=== PATIENT | female | born 1945 | race Caucasian/White ===

== ENCOUNTER 2025-09-23 12:11 | Outpatient (AMB) | payer MEDICARE, SELFPAY ==
--- OUTSIDE RECORDS SUMMARY | 2025-08-31 10:46 | XMS_ITS ---
Author Organization [facility] Address [address] [place], [place] [id number] Care Team Providers Care Machine Gun Mechanic Name Role Phone CAMPBELLKIARRABERTHA Primary Care Provider REASON FOR VISIT Appointment For , 09/03/25 SOCIAL HISTORY Sex Assigned At : Social History Observation Description Sex Assigned At Female Encounters Encounter Location Date Provider Diagnosis [address] [address] 08/31/2025 BERTHA HIGHTOWER PLAN OF TREATMENT Next Appt Details Provider Name:BERTHA GARCIA, 10/12/2025 01:00:00 PM, [address] [place] [address], [phone], Provider Name:BERTHA GARCIA, 11/25/2025 01:20:00 PM, [address] [place] [address], [phone], Provider Name:NURSING DEWEY Pineda, 11/25/2025 02:30:00 PM, [address] [place] [address], [phone],
--- OUTSIDE RECORDS SUMMARY | 2025-09-01 06:22 | XMS_ITS ---
Author Organization [facility] Address [address] [place], [place] [id number] Care Team Providers Care Computer Programming Manager Name Role Phone CAMPBELLKIARRABERTHA Primary Care Provider REASON FOR VISIT Appointment For 09/03/25 SOCIAL HISTORY Sex Assigned At : Social History Observation Description Sex Assigned At Female Encounters Encounter Location Date Provider Diagnosis [address] [address] 09/01/2025 BERTHA HIGHTOWER PLAN OF TREATMENT Next Appt Details Provider Name:BERTHA GARCIA, 10/12/2025 01:00:00 PM, [address] [place] [address], [phone], Provider Name:BERTHA GARCIA, 11/25/2025 01:20:00 PM, [address] [place] [address], [phone], Provider Name:NURSING DEWEY Pineda, 11/25/2025 02:30:00 PM, [address] [place] [address], [phone],
--- OUTSIDE RECORDS SUMMARY | 2025-09-01 09:13 | XMS_ITS ---
Author Organization [facility] Address [address] [place], [place] [id number] Care Team Providers Care State Federal Relations Deputy Director Name Role Phone CAMPBELL BERTHA Primary Care Provider REASON FOR VISIT Appointment w/Dr. Krueger MEDICATIONS Medication SIG (Take, Route, Frequency, Duration) Notes Start Date End Date Status Zolpidem Tartrate 5 MG 1 tablet at bedti me as needed Orally Once a day 07/16/2025 Active metFORMIN HCl ER 500 MG TAKE 1 TABLET BY MOUTH EVERY DAY for 90 Active Medical Compression Stockings - as directed Knee high open toed 20mmHG Dx I89.0, I87.2, R60.0 04/30/2025 Active Rosuvastatin Calcium 5 MG 1 tablet orally Once a day Active Gabapentin 300 MG TAKE 2 CAPSULES BY MOUTH AT BEDTIME and 1 qam Active Vitamin D 50 MCG (2000 UT) 1 tablet Orally Once a day Active Turmeric 500 MG as directed Orally 2200mg Active OneTouch Ultra - USE TO TEST 1-2 TIMES DAILY Active Stool Softener 100 MG 1 tablet as needed Orally Once a day for 30 day(s) Active MetroCream 0.75 % 1 herrera applied topically twice daily to facial rosacea as needed Active CoQ-10 100 MG as directed Orally Active Vitamin B Complex - as directed Orally Active Acetaminophen 8 Hour 650 MG 2 tablets as needed Orally every 8 hrs Active Escitalopram Oxalate 10 MG 1 tablet Orally Once a day for 30 day(s) Active Ibuprofen 600 MG 1 tablet with food or milk as needed Orally Three times a day Active Mirtazapine 15 MG 1/2 tablet at bedtime Orally Once a day Active MiraLax 17 GM/SCOOP as directed Orally daily Active SOCIAL HISTORY Sex Assigned At : Social History Observation Description Sex Assigned At Female Encounters Encounter Location Date Provider Diagnosis [facility] [address] [address] 09/01/2025 BERTHA SRIVASTAVAFREIDA PLAN OF TREATMENT Next Appt Details Provider Name:BERTHA Cheatham EIDLSON GARCIA, 10/12/2025 01:00:00 PM, [address] [place] [address], [phone], Provider Name:BERTHA SRIVASTAVAGalindo GARCIA, 11/25/2025 01:20:00 PM, [address] [place] [address], [phone], Provider Name:IGNACIO Pineda, 11/25/2025 02:30:00 PM, [address] [place] [address], [phone],
--- OUTSIDE RECORDS SUMMARY | 2025-09-03 04:00 | XMS_ITS ---
Author Organization [facility] Address [address] [place], [place] [phone] Care Team Providers Care Stud Dairy Cattle Farmer Name Role Phone BERTHA HIGHTOWER Primary Care Provider [phone] REASON FOR VISIT ER f/up; suicidal ideation MEDICATIONS Medication SIG (Take, Route, Frequency, Duration) Notes Start Date End Date Status Zolpidem Tartrate 5 MG 1 tablet at bedti me as needed Orally Once a day 07/16/2025 Active metFORMIN HCl ER 500 MG TAKE 1 TABLET BY MOUTH EVERY DAY for 90 Active MiraLax 17 GM/SCOOP as directed Orally daily Active Rosuvastatin Calcium 5 MG 1 tablet orally Once a day Active Gabapentin 300 MG TAKE 2 CAPSULES BY MOUTH AT BEDTIME and 1 qam Active OneTouch Ultra - USE TO TEST 1-2 TIMES DAILY Active Vitamin D 50 MCG (1999 UT) 1 tablet Orally Once a day Active Turmeric 500 MG as directed Orally 2200mg Active MetroCream 0.75 % 1 herrera applied topically twice daily to facial rosacea as needed Active Medical Compression Stockings - as directed Knee high open toed 20mmHG Dx I89.0, I87.2, R60.0 04/30/2025 Active CoQ-10 100 MG as directed Orally Active Vitamin B Complex - as directed Orally Active Acetaminophen 8 Hour 650 MG 2 tablets as needed Orally every 8 hrs Active Stool Softener 100 MG 1 tablet as needed Orally Once a day for 30 day(s) Active Ibuprofen 600 MG 1 tablet with food or milk as needed Orally Three times a day Active Escitalopram Oxalate 10 MG 1 tablet Orally Once a day for 30 day(s) Active SOCIAL HISTORY Tobacco Use: Social History Observation Description Date Details (start date - stop date) Never Smoker NA - NA Sex Assigned At : Social History Observation Description Sex Assigned At Female Smoking Question Answer Notes Are you a: never smoker Section Notes: quit age 24; h/o 1/2 ppd x 2 years. Encounters Encounter Location Date Provider Diagnosis [address] [address] 09/03/2025 BERTHA HIGHTOWER PLAN OF TREATMENT Next Appt Details Provider Name:BERTHA GARCIA, 10/12/2025 01:00:00 PM, [address] [place] [address], [phone], Provider Name:BERTHA GARCIA, 11/25/2025 01:20:00 PM, [address] [place] [address], [phone], Provider Name:IGNACIO Pineda, 11/25/2025 02:30:00 PM, [address] [place] [address], [phone],
--- OUTSIDE RECORDS SUMMARY | 2025-09-07 05:07 | XMS_ITS ---
Author Organization [facility] Address [address] [place], [place] [id number] Care Team Providers Care Lead Care Manager Name Role Phone CAMPBELL BERTHA Primary Care Provider REASON FOR VISIT Appointment At Your Office SOCIAL HISTORY Sex Assigned At : Social History Observation Description Sex Assigned At Female Encounters Encounter Location Date Provider Diagnosis [address] [address] 09/07/2025 BERTHA HIGHTOWER PLAN OF TREATMENT Next Appt Details Provider Name:BERTHA GARCIA, 10/12/2025 01:00:00 PM, [address] [place] [address], [phone], Provider Name:BERTHA GARCIA, 11/25/2025 01:20:00 PM, [address] [place] [address], [phone], Provider Name:NURSING DEWEY Pineda, 11/25/2025 02:30:00 PM, [address] [place] [address], [phone],
--- OUTSIDE RECORDS SUMMARY | 2025-09-08 07:34 | XMS_ITS ---
Author Organization [facility] Address [address] [place], [place] [id number] Care Team Providers Care Mutual Funds Agent Name Role Phone CAMPBELLKIARRABERTHA Primary Care Provider REASON FOR VISIT Reschedule Appointment Request SOCIAL HISTORY Sex Assigned At : Social History Observation Description Sex Assigned At Female Encounters Encounter Location Date Provider Diagnosis [address] [address] 09/08/2025 BERTHA HIGHTOWER PLAN OF TREATMENT Next Appt Details Provider Name:BERTHA GARCIA, 10/12/2025 01:00:00 PM, [address] [place] [address], [phone], Provider Name:BERTHA GARCIA, 11/25/2025 01:20:00 PM, [address] [place] [address], [phone], Provider Name:NURSING DEWEY Pineda, 11/25/2025 02:30:00 PM, [address] [place] [address], [phone],
--- OUTSIDE RECORDS SUMMARY | 2025-09-08 07:34 | XMS_ITS ---
Author Organization [facility] Address [address] [place], [place] [id number] Care Team Providers Care Upper Marker Name Role Phone BERTHA HIGHTOWER Primary Care Provider [phone] MANSOOR DAN [phone] REASON FOR VISIT Cancel Appointment Request SOCIAL HISTORY Sex Assigned At : Social History Observation Description Sex Assigned At Female Encounters Encounter Location Date Provider Diagnosis [address] [address] 09/08/2025 MANSOOR BAXTER PLAN OF TREATMENT Next Appt Details Provider Name:BERTHAJUAN DANIEL GARCIA, 10/12/2025 01:00:00 PM, [address] [place] [address], [phone], Provider Name:BERTHA GARCIA, 11/25/2025 01:20:00 PM, [address] [place] [address], [phone], Provider Name:NURSING DEWEY Pineda, 11/25/2025 02:30:00 PM, [address] [place] [address], [phone],
--- OUTSIDE RECORDS SUMMARY | 2025-09-08 09:00 | XMS_ITS ---
Author Organization [facility] Address [address] [place], [place] [id number] Care Team Providers Care Motel Front Desk Clerk Name Role Phone BERTHA HIGHTOWER Primary Care Provider [phone] MANSOOR DAN [phone] REASON FOR VISIT 36/37/ Bilateral upper arm pain SOCIAL HISTORY Sex Assigned At : Social History Observation Description Sex Assigned At Female Encounters Encounter Location Date Provider Diagnosis [address] [address] 09/08/2025 MANSOOR BAXTER PLAN OF TREATMENT Next Appt Details Provider Name:BERTHAJUAN DANIEL GARCIA, 10/12/2025 01:00:00 PM, [address] [place] [address], [phone], Provider Name:BERTHA GARCIA, 11/25/2025 01:20:00 PM, [address] [place] [address], [phone], Provider Name:NURSING DEWEY Pineda, 11/25/2025 02:30:00 PM, [address] [place] [address], [phone],
--- OUTSIDE RECORDS SUMMARY | 2025-09-10 05:40 | XMS_ITS ---
Author Organization [facility] Address [address] [place], [place] [id number] Care Team Providers Care Dumper Name Role Phone BERTHA HIGHTOWER Primary Care Provider MANSOOR BAXTER [phone] ALLERGIES Allergen (clinical drug ingredient) Drug/Non Drug Allergy documented on EMR Reaction Allergy Type Onset Date Status KEFLEX (uncoded) sweating & disorientation, palpatations Allergy Active doxycycline Doxycycline rash Drug Allergy Act gael predniSONE hives Drug Allergy Active simvastatin Simvastatin anterior neck spasms Drug Allergy Active azithromycin Zithromax Z-Herman hives/blisters o n arms Drug Allergy Active atorvastatin Atorvastatin muscle pain Drug Allergy Active Substance with 6-rpvdlju-1-methyl glutaryl-coenzyme A reductase inhibitor mechanism of action (substance) Statins muscle pain Drug Allergy Active REASON FOR VISIT upper bilateral arm pain, [facility] Dr. Rema Barillas, DR. Maria, [facility], Discuss Mirtazapine MEDICATIONS Medication SIG (Take, Route, Frequency, Duration) Notes Start Date End Date Status metFORMIN HCl ER 500 MG TAKE 1 TABLET BY MOUTH EVERY DAY for 90 Active Gabapentin 300 MG TAKE 2 CAPSULES BY MOUTH AT BEDTIME and 1 qam Active Rosuvastatin Calcium 5 MG 1 tablet orally Once a day Active Zolpidem Tartrate 5 MG 1 tablet at bedti me as needed Orally Once a day 07/16/2025 Active OneTouch Ultra - USE TO TEST 1-2 TIMES DAILY Active Turmeric 500 MG as directed Orally 2200mg Active Vitamin D 50 MCG (1999) 1 tablet Orally Once a day Active Medical Compression Stockings - as directed Knee high open toed 20mmHG Dx I89.0, I87.2, R60.0 04/30/2025 Active MetroCream 0.75 % 1 herrera applied topically twice daily to facial rosacea as needed Active Acetaminophen 8 Hour 650 MG 2 tablets as needed Orally every 8 hrs Active Stool Softener 100 MG 1 tablet as needed Orally Once a day for 30 day(s) Active Ibuprofen 600 MG 1 tablet with food or milk as needed Orally Three times a day Active Vitamin B Complex - as directed Orally Active CoQ-10 100 MG as directed Orally Active LORazepam 0.5 MG 1 tab and may repeat in 2 hrs if needed Orally for 1 day 09/10/2025 Active MiraLax 17 GM/SCOOP as directed Orally daily Active Escitalopram Oxalate 10 MG 1 tablet Orally Once a day for 30 day(s) Active SOCIAL HISTORY Sex Assigned At : Social History Observation Description Sex Assigned At Female Section Notes: quit age 24; h/o 1/2 ppd x 2 years. PROBLEMS Problem Type ICD Code Onset Dates Problem Status W/U Status Risk SNOMED Code Notes Problem Claustrophobia (F40.240) Active confirmed VITAL SIGNS Blood pressure systolic 128 mm Hg 09/10/20 25 Blood pressure diastolic 72 mm Hg 025 Height 67 in 09/10/2025 Weight 192.8 lbs 09/10/2025 BMI 30.19 kg/m2 09/10/2025 Encounters Encounter Location Date Provider Diagnosis [facility] [address] [place] [address] 09/10/2025 MANSOOR BAXTER Pain in left arm M79.602 ; Pain in right arm M79.601 ; Bilateral hand numbness R20.0 ; Claustrophobia F40.240 and Chronic constipation K59.09 ASSESSMENTS Encounter Date Diagnosis Assessment Notes Treatment Notes Treatment Clinical Notes Section Notes 09/10/2025 Pain in left arm (ICD-10 - M79.602) 09/10/2025 Pain in right arm (ICD-10 - M79.601) 09/10/2025 Bilateral hand numbness (ICD-10 - R20.0) 09/10/2025 Claustrophobia (ICD-10 - F40.240) 09/10/2025 Chronic constipation (ICD-10 - K59.09) uses senns s 1 twice a day a nd miralax, metamucil daily as needed and the mag citrate if needed ; use GI refefrral with 2017 colonoscopy attached to make appt with GI 09/10/2025 Other she is using the [facility] referral copy to make appt PLAN OF TREATMENT Medication Medication Name Sig Start Date Stop Date Notes LORazepam 0.5 MG 1 tab and may repea t in 2 hrs if needed Orally for 1 day 09/10/2025 Treatment Notes Assessment Notes Chronic constipation uses senns s 1 twic e a day a nd miralax, metamucil daily as needed and the mag citrate if needed ; use GI refefrral with 2017 colonoscopy attached to make appt with GI Other she is using the [facility] referral copy to make appt Pending Test Test Name Order Date MRI Cervical Spine without contrast 08/20 Next Appt Details Follow Up: pcp late Nov, ear ly Decemb, Reason: Provider Name:BERTHA Cheatham ATIFGalindo RADHA, 10/12/2025 01:00:00 PM, [address] [place] [address], [phone], Provider Name:BERTHA Cheatham EDILSON GARCIA, 11/25/2025 01:20:00 PM, [address] [place] [address], [phone], Provider Name:IGNACIO Pineda, 11/25/2025 02:30:00 PM, [address] [place] [address], [phone], History and Physical Notes * HPI (History of Present Illness) Category Sub-Category Detail Notes Category Not es General started pain ar ms early August. rt arm worse than left and numbness 45th fingers rt hands. No neck pains No other symptoms Chronic constipation Miralax and senna not helping mag citrate. States constipation since summer. States colonoscopy 2017 and told redo 5 yrs but due knee surgery was cancelled. States has chronic claustrophobia and will need ativan for MRI. States was supposted to do EMG in spring but did not do. States it can be painful . Numbness fingers both hands Physical Examination Category Sub-Category Detail Notes Section Note s NECK Neck: tightness in par avert muscles and also sonme tenderness posterio neck CHEST Breath sounds: clear to auscultation HEART Rhythm: regular Heart sounds: Normal S1 & S2, no S 3/S4 NEUROLOGICAL Sensory: normal Motor: 5/5 strength proxima lly and distally in all 4 extremities; tile and marble setter strong Gait: walks slow with cane Mental status: Alert and oriented t o person, place, time Cerebellar: normal Speech normal MUSCULOSKELETAL Shoulders: pain in shoulder when wilkes sing up GENERAL General Appearance: well nourished, no ap parent distress, O x 3 NAD PSYCHOLOGY Grooming: appropriate Eye contact: normal Mood: pleasant Affect some anxiety
--- OUTSIDE RECORDS SUMMARY | 2025-09-15 10:40 | XMS_ITS ---
Author Organization [facility] Address [address] [place], [place] [id number] Care Team Providers Care Roof Bolter Operator Name Role Phone BERTHA HIGHTOWER Primary Care Provider [phone] CHAI LANDEROS [phone] REASON FOR VISIT 36/37/bilateral upper arm pain SOCIAL HISTORY Sex Assigned At : Social History Observation Description Sex Assigned At Female Encounters Encounter Location Date Provider Diagnosis [address] [address] 09/15/2025 CHAI BUTCHER PLAN OF TREATMENT Next Appt Details Provider Name:BERTHA S EDILSON GARCIA, 10/12/2025 01:00:00 PM, [address] [place] [address], [phone], Provider Name:BERTHA GARCIA, 11/25/2025 01:20:00 PM, [address] [place] [address], [phone], Provider Name:NURSING DEWEY Pineda, 11/25/2025 02:30:00 PM, [address] [place] [address], [phone],
--- NOTE | 2025-09-23 12:23 | A.OFFVIS_ITS ---
Intake Visit Reasons: Chronic pain in both arms Medication List - Last Reconciled 09/23/25 by Marquise Dang MD escitalopram oxalate (Lexapro) 10 mg PO DAILY gabapentin 300 mg PO TID metformin 500 mg PO DAILY mirtazapine 15 mg PO BEDTIME rosuvastatin 5 mg PO DAILY HPI Comments Details: This is a 79-year-old right-handed woman with a history of anxiety disorder, type 2 diabetes mellitus and osteoarthritis who comes in with multiple complaints. She has had neck pain starting in March of 2025 and pain radiating into both arms in the shoulders and forearms initially starting on the right and now more prominent on the left side with some sharp stabbing pains over the deltoids and aching in the forearm. She also complains of lower back pain and pain in both buttocks. Three days ago she had an MRI of the cervical spine and is scheduled for a lumbar spine MRI tomorrow. Neither of those are available for review at this time. It was also suggested that she have nerve conduction EMG study which she canceled because she was afraid of the pain. She complains of some numbness tenderness in the right foot distal to the mid tarsal level and says that she has a neuropathy. She also has pain in her knees and has had right total knee replacement. She sometimes loses balance and therefore uses a cane for security. She complains of tinnitus in the left ear. She has lost 100 4 lb over the last year with diet and eating less and has dropped her weight from 298-194. She is 70 inches tall Review of Systems Const Reports weight loss ENT Reports neck pain and Reports tinnitus GI Reports constipation Details: Urinary frequency Musc Reports back pain, Reports arthralgias, Reports limited range of motion, Reports neck pain, Reports numbness and Reports radiating pain into limb Neuro Reports numbness Psych Reports depression Physical Exam Neuro Other: ?Mini Mental Status Exam Level of Consciousness:?Alert.? Orientation:?Knows correct year, month, date, day and season.?Knows correct city, county and state. Knows correct location and floor.? Registration:?Able to register 3 objects.? Attention:?Serial 7's performed accurately.? Recall:?Able to recall 3 out of 3 objects.? Language:?Normal spontaneous speech, fluency, repetition, naming, comprehension, reading, and writing.? Total Score:?30/30.? Neurological Abnormal neurological findings:??Absent deep tendon reflexes in the lower extremities. Mild blunting of pinprick sensation in the right foot distal to the mid tarsal level.? Mental Status:?Alert and oriented X 3.?Normal attention, orientation, memory, and affect.? Cranial Nerves:?Pupils are equal, round and reactive to light. Fundoscopy shows normal disc bilaterally. External occular muscles are intact. Visual gonzalez are full, no ptosis. Face is symmetrical, no facial weakness or droop. Facial sensations are normal. Tongue protrudes in midline. Palate elevates symmetrically. Shoulder shrugging is normal.? Motor Examination:?Normal muscle tone, bulk and strength.?No atrophy or fasciculations.?No drift of the extended upper extremities.?Deep tendon reflexes are 2+ absent in LE.?Plantars are flexor.? Motor Strength:? Proximal Muscles (out of 5):?5 Distal Muscles (out of 5):?5 Neck Flexors (out of 5):?5 Neck Extensors (out of 5):?5 Deltoid (out of 5):?5 Biceps (out of 5):?5 Triceps (out of 5):?5 Serratus Anterior (out of 5):?5 Wrist Extensors (out of 5):?5 APB (out of 5):?5 Finger Spread (out of 5):?5 Ileopsoas (out of 5):?5 Quadriceps (out of 5):?5 Hamstrings (out of 5):?5 Tibialis Anterior (out of 5):?5 Peronei (out of 5):?5 EDB (out of 5):?5 Gastrocnemius (out of 5):?5 Straight Leg Raising:?90 degrees.? Sensory Exam:?as above, otherwise Normal light touch, temperature, pinprick, vibration and joint-position sensations.?Rhomberg sign is absent.? Coordination:?No ataxia,?no titubation,?fdtscn-hv-pxkz, mbch-hasy-upoy test, and rapid alternating movements were normal.? Gait Exam:?Within normal limits.? Cerebellar Signs:?Jlzrlm-ws-wtfo and iltt-ay-qtlq is normal.?No dysdiadochokinesia.? Extrapyramidal System:?No tremor or?rigidity, normal facial expressions.?No bradykinesia. No bradyphrenia. Normal arm swing and posture. No propulsion or retropulsion.? Speech:?Normal,?no dysphasia or dysarthria.? General Examination GENERAL APPEARANCE:??normal,?in no acute distress?,?normal,?in no acute distress.? HEAD:??normocephalic,?atraumatic.? EYES:??sclera non-icteric,?conjunctiva clear.? EARS:??auditory canal clear,?tympanic membrane intact, clear.? NOSE:??no lesions.? ORAL CAVITY:??gums normal,?mucosa moist,?no lesions.? THROAT:??clear.? NECK/THYROID:??no cervical lymphadenopathy,?thyroid normal,?neck supple, full range of motion,?no carotid bruit.? SKIN:??no rashes,?no significant birthmarks.? HEART:??S1, S2 normal,?no murmurs?,?S1, S2 normal,?no murmurs.? LUNGS:??clear anteriorly and posteriorly?,?clear anteriorly and posteriorly.? CHEST:??no gross rib deformity,?clear to auscultation.? BACK:??normal exam of spine.? MUSCULOSKELETAL:??normal.? EXTREMITIES:??no edema?,?no edema.? PERIPHERAL PULSES:??normal.? PSYCH:??alert, oriented,?cognitive function intact,?cooperative with exam?, ?alert, oriented,?cognitive function intact,?cooperative with exam.? Assessment & Plan Assessment & Plan (1) Cervical spondylosis with radiculopathy: Code(s): M47.22 - Other spondylosis with radiculopathy, cervical region Category: Medical (2) Lumbar disc disease with radiculopathy: Code(s): M51.16 - Intervertebral disc disorders with radiculopathy, lumbar region Category: Medical (3) Peripheral neuropathy: Code(s): G62.9 - Polyneuropathy, unspecified Category: Medical Plan MRI C spine done last week: Patient to bring results, LS spine MRI being done tomorrow. Patient wants to hold off NCV/ EMG for now. Diclofenac sod. 75mg bid prn Medications: New diclofenac sodium 75 mg PO BID 60 tabs 1RF Coding Level of Care Code New Pt Level 5 (98309) Diagnoses Cervical spondylosis with radiculopathy M47.22 Lumbar disc disease with radiculopathy M51.16 Peripheral neuropathy G62.9
--- OUTSIDE RECORDS SUMMARY | 2025-09-23 14:50 | XMS_ITS | Encounter Summary ---
Author Organization [facility] Address [address] [place] [address] Care Team Providers Care Bender Machine Operator Name Role Phone Lainey Krueger MD Primary Care Provider [phone] Encounter Details Date Type Department Care Team (Late Contact Info) Description 03/19/2025 Lab Requisition [facility] - Main Lab [address] [facility] [place] [phone] Nicolasa Joshi NP [address] [address] Frequency of micturition Social History Tobacco Use Types Packs/Day Years Used Date Smoking Tobacco: Former Cigarettes Alcohol Use Standard Drinks/Week Comments Yes 0 (1 standard drink = 0.6 oz pur e alcohol) rarely Comments Unknown Sex and Gender Information Value Date Recorded Sex Assigned at Female 10/10/2024 6:02 AM EST Legal Sex Female 7:17 AM EST Gender Identity Female 10/10/2024 6:02 AM EST Sexual Orientation Straight 10/10/2024 6: 02 AM EST documented as of this encounter Plan of Treatment Upcoming Encounters Date Type Department Care Team (Late Contact Info) Description 09/24/2025 12:15 PM EST Appointment [facility] MRI [address] [place] [phone] 10/28/2025 11:30 AM EST Office Visit [facility] Hematology Oncology [address] [place] [phone] Alannah Barillas, DO [address] [place] [address] documented as of this encounter Procedures Procedure Name Priority Date/Time Associated Diagnosis Comments BACTERIAL IDENTIFICATION AND SUSCEPTIBILITY, AEROBIC Routine 03/18/2025 12:00 AM EDT Frequency of micturition documented in this encounter Results * (ABNORMAL) Bacterial identification and susceptibility, aerobic (03/18/2025 12:00 AM EDT) Pathologist [facility] Culture, Bacterial ID and Sensitivity Escherichia coli(A) CLAUDIA 03/20/2025 8:33 AM EDT [facility] Other Urine specimen from urethra / Unknown 03/18/2025 03/19/2025 10:17 AM EDT Narrative Organism Antibiotic Method Susceptibility Escherichia coli Amoxicillin/Clavulanate CLAUDIA 4 ug/ml: Susceptible Escherichia coli Ampicillin/Sulbactam CLAUDIA 4 ug/ml: Susceptible Escherichia coli Piperacillin/Tazobactam CLAUDIA <=4 ug/ml: Susceptible Escherichia coli Cefazolin (Urine) CLAUDIA <=1 ug/ml: Susceptible Escherichia coli Cefoxitin CLAUDIA <=4 ug/ml: Susceptible Escherichia coli Ceftazidime CLAUDIA <=0.5 ug/ml: Susceptible Escherichia coli Ceftriaxone CLAUDIA <=0.25 ug/ml: Susceptible Escherichia coli Cefepime CLAUDIA <=0.12 ug/ml: Susceptible Escherichia coli Meropenem CLAUDIA <=0.25 ug/ml: Susceptible Escherichia coli Amikacin CLAUDIA 4 ug/ml: Susceptible Escherichia coli Gentamicin CLAUDIA <=1 ug/ml: Susceptible Escherichia coli Ciprofloxacin CLAUDIA <=0.06 ug/ml: Susceptible Escherichia coli Levofloxacin CLAUDIA <=0.12 ug/ml: Susceptible Escherichia coli Nitrofurantoin CLAUDIA <=16 ug/ml: Susceptible Escherichia coli Trimethoprim/Sulfamethoxazole CLAUIDA >=320 ug/ml: Resistant us Nicolasa Joshi NP LAB MICROBIOLOGY - GENERA L ORDERABLES Final Result [facility] [address] [place], [place] [address] [phone] documented in this encounter Visit Diagnoses Diagnosis Frequency of micturition Urinary frequency documented in this encounter Care Teams Bender Machine Operator Relationship Specialty Start Date End Date Lainey Krueger MD [address] [place] [id number] PCP - General Internal Medicine 04/29/25 documented as of this encounter
--- OUTSIDE RECORDS SUMMARY | 2025-09-23 14:50 | XMS_ITS | Encounter Summary ---
Author Organization [facility] Address [address] [place] [address] Care Team Providers Care Content Strategist Name Role Phone Lainey Krueger MD Primary Care Provider [phone] Encounter Details Date Type Department Care Team (Late Contact Info) Description 02/08/2025 Lab Requisition [facility] - Main Lab [address] [facility] [place] [phone] Aashish Teran MD [address] [place] [address] Type 2 diabetes mellitus without complications (CMS/HCC V24, CMS/HCC V28); Cellulitis, unspecified Social History Tobacco Use Types Packs/Day Years [...] Info) Description 09/24/2025 12:15 PM EST Appointment [facility] MRI [address] [place] [phone] 10/28/2025 11:30 AM EST Office Visit [facility] Hematology Oncology [address] [place] [phone] Alannah Barillas, DO [address] [place] [address] documented as of this encounter Visit Diagnoses Diagnosis Type 2 diabetes mellitus without complications ([facility] V24, [facility] V28) Cellulitis, unspecified documented in this encounter Care Teams Content Strategist Relationship Specialty Start Date End Date Lainey Krueger MD [address] [place] [phone] PCP - General Internal Medicine 04/29/25 documented as of this encounter
--- OUTSIDE RECORDS SUMMARY | 2025-09-23 14:50 | XMS_ITS | Clinical Summary ---
Author Organization [facility] Address [address] [place] [phone] Phone Care Team Providers Care Science Faculty Member Name Role Phone Lainey Krueger MD Primary Care Provider [phone] Allergies Active Allergy Reactions Criticality Noted Date Comments Cephalexin 06/04/2025 Medications diclofenac (VOLTAREN) 75 mg EC tablet Take 1 tablet (75 mg total) by mouth. 1 Active cycloSPORINE (Restasis) 0.05 % ophthalmic emulsion 1 drop. 2 Active gabapentin (NEURONTIN) 300 mg capsule Take 1 capsule (300 mg total) by mouth 2 (two) times a day. 2 Active metFORMIN (GLUCOPHAGE) 500 mg tablet Take 1 tablet (500 mg total) by mouth 1 (one) time each day with breakfast. Active rosuvastatin (CRESTOR) 5 mg tablet Take 1 tablet (5 mg total) by mouth 1 (one) time each day. Active cholecalciferol (VITAMIN D-3) 25 mcg (1,000 unit) tablet Take 1 tablet (1,000 Units total) by mouth. Active albuterol HFA (PROAIR HFA ; PROVENTIL HFA ; VENTOLIN HFA) 90 mcg/actuation inhaler Inhale 2 puffs by mouth every 4 (four) hours if needed. Active budesonide-formo teroL (SYMBICORT) 160-4.5 mcg/actuation inhaler Inhale 2 puffs by mouth. Active polyethylene glycol (PEG) 17 gram/dose oral powder 17 g 1 (one) time each day. Active loratadine (CLARITIN REDITABS) 10 mg dispersible tablet Dissolve 1 tablet (10 mg total) on top of the tongue 1 (one) time each day. Active fluticasone propionate (FLONASE) 50 mcg/actuation nasal spray Administer 1 spray into each nostril 1 (one) time each day. Shake gently. Before first use, prime pump. After use, clean tip and replace cap. Active phenazopyridine (PYRIDIUM) 200 mg tablet Take 1 tablet (200 mg total) by mouth every 8 (eight) hours if needed (urinary discomfort). 21 tablet Active Active Problems Problem Noted Date Diagnosed Date Asthma 10/09/2024 Diabetes mellitus, type 2 ([facility] V24, [facility] V28) 10/09/2024 Cancer ([facility] V24, [facility] V28) 10/09/2024 Encounters Date Type Department Care Team Description 08/04/2025 8:19 PM EDT - 08/04/2025 10:[address] [facility] Emergency [address] [place] [address] Aida Mcarthur MD Gasping for breath (Primary Dx) Discharge Disposition: Home or Self Care 08/03/[address] [facility] Hematology Oncology [address] [place] [address] [place], [place] 07/22/2025 9:39 AM EDT - 07/22/2025 11:59 PM EDT Hospital Encounter [facility] CT Scan [address] [place] [address] DM (diabetes mellitus) ([facility] V24, [facility] V28); Asthma; Personal history of malignant neoplasm of bladder; Personal history of malignant neoplasm of ureter Discharge Disposition: Home or Self Care from Last 3 Months Surgical History Surgery Date Site/Laterality Comments BLADDER SURGERY CYSTOSCOPY VEIN SURGERY HYSTERECTOMY FEMUR FRACTURE SURGERY MENISCECTOMY Bilateral Medical History Medical History Date Comments Diabetes mellitus ([facility] V24, [facility] V28) Fractures Rib fracture Cancer ([facility] V24, [facility] V28) Asthma Reactive airway disease Neuropathy Cellulitis Bladder cancer ([facility] V24, [facility] V28) Neuropathy Social History Tobacco Use Types Packs/Day Years Used Date Smoking Tobacco: Former Cigarettes Tobacco Cessation:Counseling Given: Not Answered Alcohol Use Standard Drinks/Week Comments Yes 0 (1 standard drink = 0.6 oz pur e alcohol) rarely Comments No Sex and Gender Information Value Date Recorded Sex Assigned at Female 10/10/2024 6:02 AM EST Legal Sex Female 7:17 AM EST Gender Identity Female 10/10/2024 6:02 AM EST Sexual Orientation Straight 10/10/2024 6: 02 AM EST Obstetrics History Para Term AB IAB SAB Ectopic Multiple Livin g Live Births 2 Last Filed Vital Signs Vital Sign Reading Time Taken Comments Blood Pressure 113/66 08/04/2025 7:11 PM EDT Pulse 63 08/04/2025 7:11 PM EDT Temperature 36.7 C (98.1 F) 08/04/2025 7:11 PM EDT Respiratory Rate 22 08/04/2025 7:11 PM EDT Oxygen Saturation 100% 08/04/2025 7:11 PM EDT Inhaled Oxygen Concentration - - Weight 99.8 kg (220 lb) 06/04/2025 11:35 AM EDT Height 177.8 cm (5' 10 ) 06/04/2025 11:35 AM EDT Body Mass Index 31.57 06/04/2025 11:35 AM EDT Plan of Treatment Upcoming Encounters Date Type Department Care Team (Late st Contact Info) Description 09/24/2025 12:[address] [facility] MRI [address] [place] [address] 10/28/2025 11:30 AM EST Office Visit [facility] Hematology Oncology [address] [place] [address] Alannah Barillas, [address] [place] [address] Health Maintenance Due Date Last Done Comments Diabetes: Annual Foot Exam 1957 Diabetes: Annual Retina Eye Exam 1955 DTaP,Tdap,and Td Vaccines (1 - Tdap) 1966 Hepatitis A Vaccines (1 of 2 - Risk 2-dose series) 1966 Zoster Vaccines (1 of 2) 1997 Hepatitis B Vaccines (1 of 3 - Risk 3-dose series) 2007 Cholesterol Screening (Lipid Panel) 10/22/2022 Hepatitis C Screening 10/22/2022 Medicare Annual Wellness Visit 10/22/2022 Osteoporosis Screening (Bone Density Screening) 10/22/2022 Social Influencers of Health Screening 10/22/2022 Diabetes: Annual Urine Albumin-Creatinine Ratio (uACR) 11/03/2022 RSV Immunization Adult Patients (1 - 1-dose 75+ series) 2022 Depression Screening 11/19/2024 COVID-19 Vaccine ( season) 2025 10/17/2022, 11/24/2021, 03/05/2021, Additional history exists Influenza Vaccine (#1) 2025 Diabetes: Blood Sugar Control Test (HGBA1C) 08/01/2025 01/29/2025, 01/23/2025 Falls Risk Assessment 10/10/2025 10/10/2024 Diabetes: Annual GFR (Glomerular Filtration Rate) 08/04/2026 08/04/2025, 02/09/2025, 02/02/2025, Additional history exists Pneumococcal Vaccine: 50+ Years Completed 10/30/2024 Breast Cancer Screening Discontinued 05/07/20, 09/29/2022, 09/27/2021, Additional history exists HIB Vaccines Aged Out No longer eligi ble based on patient's age to complete this topic HPV Vaccines Aged Out No longer eligi ble based on patient's age to complete this topic IPV Vaccines Aged Out No longer eligi ble based on patient's age to complete this topic MMR Vaccines Aged Out No longer eligi ble based on patient's age to complete this topic Meningococcal ACWY Vaccine Aged Out N o longer eligible based on patient's age to complete this topic Meningococcal B Vaccine Aged Out No l onger eligible based on patient's age to complete this topic RSV Immunization Patients Under 20 months Aged Out No longer eligible based on patient's age to complete this topic Varicella Vaccines Aged Out No longer eligible based on patient's age to complete this topic Procedures Procedure Name Priority Date/Time Associated Diagnosis Comments ECG ANNOTATED 08/05/2025 TROPONIN I HIGH SENSITIVITY Timed 08/04/2025 9:14 PM EDT XR CHEST 2 VIEWS STAT 08/04/2025 8:53 PM EDT ECG 12-LEAD STAT 08/04/2025 8:38 PM EDT POCT GLUCOSE BLOOD Routine 08/04/2025 7: 46 PM EDT CBC WITH AUTO DIFFERENTIAL STAT 08/04/2025 7:42 PM EDT B-TYPE NATRIURETIC PEPTIDE STAT 08/04/2025 7:42 PM EDT TROPONIN I HIGH SENSITIVITY Timed 08/04/2025 7:42 PM EDT BASIC METABOLIC PANEL STAT 08/04/2025 7:42 PM EDT CBC AND DIFFERENTIAL STAT 08/04/2025 7:[address] UROGRAM (IVP) Routine 07/22/2025 10:0 7 AM EDT DM (diabetes mellitus) (CMS/HCC V24, CMS/HCC V28) Asthma Personal history of malignant neoplasm of bladder Personal history of malignant neoplasm of ureter MG MAMMO DIGITAL SCREENING W MARSHALL BILAT Routine 05/07/2025 11:08 AM EDT Encounter for screening mammogram for breast cancer HEMOGLOBIN A1C Routine 01/29/2025 6:09 AM EDT Type 2 diabetes mellitus without complications (CMS/HCC) Cellulitis, unspecified Presence of right artificial knee joint from Last 3 Months or Most Recently Relevant to Health Maintenance Results * ECG-Annotated (08/05/2025) us Provider Onbase MD ECG ORDERABLES Final Result * Troponin I high sensitivity (08/04/2025 9:14 PM EDT) Only the most recent of2 resultswithin the time period is included. High Sensitivity Troponin I 7 <=54 ng/L LAB CHEMISTRY METHOD 08/04/2025 10:16 PM EDT [facility] Blood Venous blood specimen / Unknown Venipuncture / Unknown 08/04/2025 9:14 PM EDT 08/04/2025 9:44 PM EDT Narrative [facility] - 08/04/2025 10:16 PM EDT High levels of biotin in samples may falsely decrease hsTroponin values. Use caution when interpreting hsTroponin results in patients taking biotin who exhibit renal impairment (eGFR <60) or in patients taking more than 20 mg/day of biotin. us Denny Tan MD LAB BLOOD ORDERABLES Final Resul t [facility] [address] [place] [address], * XR Chest 2 Views (08/04/2025 8:53 PM EDT) Anatomical Region Laterality Modality Body Radiographic Sarahi ging 08/05/2025 8:47 AM EDT Impressions 08/05/2025 8:50 AM EDT No acute findings. -------- FINAL REPORT -------- Dictated By: Lionel Alonzo Dictated Date: 08/05/2025 08:47 ET Assigned Physician: Lionel Alonzo Reviewed and Electronically Signed By: Lionel Alonzo Signed Date: 08/05/2025 08:50 ET Workstation ID: [id number] Transcribed By: Self Edit Transcribed Date: 08/05/2025 08:48 ET Narrative 08/05/2025 8:50 AM EDT PROCEDURE: PA and lateral radiographs of the chest. HISTORY: dyspnea. COMPARISON: 10/26/2023. FINDINGS: Bones appear demineralized. Degenerative changes of the spine with findings of DISH. Mild degenerative changes of the shoulders. Calcifications in the soft tissues superior to the right humeral head suggestive of calcific tendinitis of the rotator cuff. Lungs, pleural spaces, pulmonary vasculature, and cardiomediastinal contours are normal. Procedure Note Lionel Alonzo MD - 08/05/2025 PROCEDURE: PA and lateral radiographs of the chest. HISTORY: dyspnea. COMPARISON: 10/26/2023. FINDINGS: Bones appear demineralized. Degenerative changes of the spine withfindings of DISH. Mild degenerative changes of the shoulders.Calcifications in the soft tissues superior to the right humeral headsuggestive of calcific tendinitis of the rotator cuff. Lungs, pleuralspaces, pulmonary vasculature, and cardiomediastinal contours arenormal. IMPRESSION: No acute findings. -------- FINAL REPORT -------- Dictated By: Lionel Alonzo Dictated Date: 08/05/2025 08:47 ET Assigned Physician: Lionel Alonzo Reviewed and Electronically Signed By: Lionel Alonzo Signed Date: 08/05/2025 08:50 ET Workstation ID: [id number] Transcribed By: Self Edit Transcribed Date: 08/05/2025 08:48 ET us Denny Tan MD IMG XR PROCEDURES Final Result * ECG 12 lead (08/04/2025 8:38 PM EDT) Ventricular Rate ECG 60 BPM GEMUSE Atrial Rate 60 BPM GEMUSE P-R Interval 152 ms GEMUSE QRS Duration 86 ms GEMUSE Q-T Interval 434 ms GEMUSE QTc 434 ms GEMUSE P Wave Dawn 80 degrees GEMUSE R Dawn 77 degrees GEMUSE T Dawn 53 degrees GEMUSE ECG Interpretation Normal sinus rhythm Normal ECG When compared with ECG of 26-OCT-2023 09:17, Premature atrial complexes are no longer Present Confirmed by RODOLFO STARR ([id number]) on 08/05/2025 2:35:03 PM GEMUSE 08/04/2025 8:38 PM EDT 08/05/2025 2:35 PM EDT us Denny Tan MD ECG ORDERABLES Final Result GEMUSE * POCT Glucose, blood (08/04/2025 7:46 PM EDT) [facility] Glucose POCT 96 70 - 100 mg/dL 08/04/2025 7:47 PM EDT [facility] Blood Capillary blood specimen / Unknown 08/04/2025 7:46 PM EDT 08/04/2025 7:48 PM EDT us Generic Provider Poct LAB POINT OF CARE TEST DOCKED DEVICE UNSOLICITED RESULTS Final Result Performing Organization Address City/[facility]/ZIP Co de Phone Number [facility] [address] [place] [address], * (ABNORMAL) CBC auto differential (08/04/2025 7:42 PM EDT) [facility] WBC 7.6 4.8 - 10.8 K/mcL LAB HEMETOLOGY METHOD 08/04/2025 8:18 PM EDT [facility] RBC 5.10(H) 3.80 - 4.80 M/mcL LAB HEMETOLOGY METHOD 08/04/2025 8:18 PM EDT [facility] Hemoglobin 14.3 11.5 - 16.0 g/dL LAB HEMETOLOGY METHOD 08/04/2025 8:18 PM EDT [facility] Hematocrit 43.8 35.0 - 47.0 % LAB HEMETOLOGY METHOD 08/04/2025 8:18 PM EDT [facility] MCV 86.2 79.0 - 98.0 FL LAB HEMETOLOGY METHOD 08/04/2025 8:18 PM EDT [facility] MCH 28.1 27.0 - 32.0 pcg LAB HEMETOLOGY METHOD 08/04/2025 8:18 PM EDT [facility] MCHC 32.6 32.0 - 37.0 g/dL LAB HEMETOLOGY METHOD 08/04/2025 8:18 PM EDT [facility] RDW 14.2 11.0 - 15.0 % LAB HEMETOLOGY METHOD 08/04[facility]2025 [facility] Platelets 226 130 - 400 K/mcL LAB HEMETOLOGY METHOD 08/04/2025 8:18 PM [facility] MPV 10.1 7.0 - 11.0 FL LAB HEMETOLOGY METHOD 08/04/2025 8:18 [facility] NRBC 0.0 <1.0 % LAB HEMETOLOGY METHOD 08/04/2025 8:18 PM [facility] NRBC Absolute 0.00 <0.10 K/mcL LAB HEMETOLOGY METHOD 08/04/2025 8:18 PM [facility] Neutrophils Relative 72.5 % LAB HEMETOLOGY METHOD 08/04/2025 8:18 PM [facility] Lymphocytes Relative 18.2 % LAB HEMETOLOGY METHOD 08/04/2025 8:18 PM [facility] Monocytes Relative 7.7 % LAB HEMETOLOGY METHOD 08/04/2025 8:18 PM [facility] Eosinophils Relative 0.8 % LAB HEMETOLOGY METHOD 08/04/2025 8:18 PM [facility] Basophils Relative 0.4 % LAB HEMETOLOGY METHOD 08/04/2025 8:18 PM [facility] Immature Granulocytes Relative 0.4 % LAB HEMETOLOGY METHOD 08/04/2025 8:18 PM [facility] Neutrophils Absolute 5.54 1.50 - 7.00 K/mcL LAB HEMETOLOGY METHOD 08/04/2025 8:18 PM [facility] Lymphocytes Absolute 1.39 1.00 - 5.00 K/mcL LAB HEMETOLOGY METHOD 08/04/2025 8:18 PM EDT [facility] Monocytes Absolute 0.59 0.20 - 1.00 K/mcL LAB HEMETOLOGY METHOD 08/04/2025 8:18 PM EDT [facility] Eosinophils Absolute 0.06 0.00 - 0.50 K/[facility] LAB HEMETOLOGY METHOD 08/04/2025 8:18 PM EDT [facility] Basophils Absolute 0.03 0.00 - 0.20 K/[facility] LAB HEMETOLOGY METHOD 08/04/2025 8:18 PM EDT [facility] Immature Granulocytes Absolute 0.03 0.00 - 0.03 K/[facility] LAB HEMETOLOGY METHOD 08/04/2025 8:18 PM EDT [facility] Blood Venous blood specimen / Unknown Venipuncture / Unknown 08/04/2025 7:42 PM EDT 08/04/2025 8:09 PM EDT us Denny Tan MD LAB BLOOD ORDERABLES Final Resul t Performing Organization Address City/[facility]/ZIP Co de Phone Number [facility] [address] [place] [address], [place] [phone] * B-type natriuretic peptide (08/04/2025 7:42 PM EDT) BNP 36 <=100 pcg/mL LAB CHEMISTRY METHOD 08/04/2025 8:43 PM EDT [facility] Blood Venous blood specimen / Unknown Venipuncture / Unknown 08/04/2025 7:42 PM EDT 08/04/2025 8:09 PM EDT us Denny Tan MD LAB BLOOD ORDERABLES Final Resul t Performing Organization Address City/[facility]/ZIP Co de Phone Number [facility] [address] [place] [address], [place] [phone] * Basic metabolic panel (08/04/2025 7:42 PM EDT) Sodium 139 133 - 145 mmol/L LAB CHEMISTRY METHOD 08/04/2025 8:34 PM [facility] Potassium 3.7 3.5 - 5.5 mmol/L LAB CHEMISTRY METHOD 08/04/2025 8:34 PM [facility] Chloride 104 96 - 110 mmol/L LAB CHEMISTRY METHOD 08/04/2025 8:34 PM [facility] CO2 26 21 - 32 mmol/L LAB CHEMISTRY METHOD 08/04/2025 8:34 PM [facility] Anion Gap 9 3 - 11 LAB CHEMISTRY METHOD 08/04/2025 8:34 PM [facility] Glucose 84 70 - 100 mg/dL LAB CHEMISTRY METHOD 08/04/2025 8:34 PM [facility] BUN 15 5 - 25 mg/dL LAB CHEMISTRY METHOD 08/04/2025 8:34 PM [facility] Creatinine 0.71 0.50 - 1.10 mg/dL LAB CHEMISTRY METHOD 08/04/2025 8:34 PM [facility] eGFR 88 >=60 mL/min/1. 73m2 LAB CHEMISTRY METHOD 08/04/2025 8:34 PM [facility] Comment:Calculation based on the Chronic Kidney Disease Epidemiology Collaboration (CKD-EPI) equation refit without adjustment for race. BUN/Creatinine Ratio 21.1 LAB CHEMISTRY METHOD 08/04/2025 8:34 PM [facility] Calcium 9.8 8.5 - 10.5 mg/dL LAB CHEMISTRY METHOD 08/04/2025 8:34 PM [facility] Blood Venous blood specimen / Unknown Venipuncture / Unknown 08/04/2025 7:42 PM EDT 08/04/2025 8:09 PM EDT us Denny Tan MD LAB BLOOD ORDERABLES Final Resul t [facility] [address] [place] [address], * CT Urogram (IVP) (07/22/2025 10:07 AM EDT) Anatomical Region Laterality Modality Body Computed Tomogra phy 07/28/2025 1:19 PM EDT Impressions 07/28/2025 1:24 PM EDT Postoperative changes at the right bladder and ureter. No recurrent or metastatic disease in the abdomen/pelvis. No renal/ureteral mass or calculus. No hydronephrosis. -------- FINAL REPORT -------- Dictated By: RONNIE DAVISON Dictated Date: 07/28/2025 13:19 ET Assigned Physician: RONNIE DAVISON Reviewed and Electronically Signed By: RONNIE DAVISON Signed Date: 07/28/2025 13:24 ET Workstation ID: [id number] Transcribed By: Self Edit Transcribed Date: 07/28/2025 13:19 ET Narrative 07/28/2025 1:24 PM EDT PROCEDURE: CT urogram INDICATION: Bladder and ureteral neoplasm TECHNIQUE: CT of the abdomen and pelvis before and after the intravenous administration of 120cc ISOVUE 370. Multiplanar reformats. The examination was performed utilizing dose reduction techniques. Total DLP 2289 COMPARISON: 02/13/2024 FINDINGS: LOWER THORAX: Bibasilar atelectasis. No suspicious pulmonary nodules seen at the lung bases. HEPATOBILIARY: No focal liver lesions. Cholecystectomy. No biliary duct dilatation. SPLEEN: No splenomegaly. PANCREAS: No focal mass or ductal dilatation. ADRENALS: No nodules. KIDNEYS/URETERS: No hydronephrosis, stones, or solid mass. Right renal cyst. Delayed images demonstrate normal contrast excretion filling the ureters. No filling defects are seen along the course of the ureters. No ureteral mass. Postoperative changes at the right ureter. PELVIC ORGANS/BLADDER: No asymmetric bladder wall thickening. Postoperative contour of the right bladder.. Hysterectomy. No adnexal mass. Small bilateral pelvic sidewall lymph nodes are stable compared to 2023. No lymphadenopathy by size criteria. PERITONEUM / RETROPERITONEUM: No ascites or free air. No retroperitoneal lymphadenopathy. VESSELS: Portal vein is patent. Abdominal aorta is normal in size. GI TRACT: Colonic diverticulosis. No bowel obstruction or wall thickening. Moderate stool throughout the colon. Appendix is not visualized. No evidence of appendicitis in the right lower quadrant. BONES AND SOFT TISSUES: Small fat-containing periumbilical hernia degenerative changes seen throughout the bones. No suspicious lytic or blastic lesions.. Procedure Note Ronnie Davison MD - 07/28/2025 PROCEDURE: CT urogram INDICATION: Bladder and ureteral neoplasm TECHNIQUE: CT of the abdomen and pelvis before and after the intravenousadministration of 120cc ISOVUE 370. Multiplanar reformats. The examinationwas performed utilizing dose reduction techniques. Total DLP 2289 COMPARISON: 02/13/2024 FINDINGS: LOWER THORAX: Bibasilar atelectasis. No suspicious pulmonary nodules seenat the lung bases. HEPATOBILIARY: No focal liver lesions. Cholecystectomy. No biliary ductdilatation. SPLEEN: No splenomegaly. PANCREAS: No focal mass or ductal dilatation. ADRENALS: No nodules. KIDNEYS/URETERS: No hydronephrosis, stones, or solid mass. Right renalcyst. Delayed images demonstrate normal contrast excretion filling theureters. No filling defects are seen along the course of the ureters. Noureteral mass. Postoperative changes at the right ureter. PELVIC ORGANS/BLADDER: No asymmetric bladder wall thickening.Postoperative contour of the right bladder.. Hysterectomy. No adnexalmass. Small bilateral pelvic sidewall lymph nodes are stable compared [id number]. No lymphadenopathy by size criteria. PERITONEUM / RETROPERITONEUM: No ascites or free air. No retroperitoneallymphadenopathy. VESSELS: Portal vein is patent. Abdominal aorta is normal in size. GI TRACT: Colonic diverticulosis. No bowel obstruction or wallthickening. Moderate stool throughout the colon. Appendix is notvisualized. No evidence of appendicitis in the right lower quadrant. BONES AND SOFT TISSUES: Small fat-containing periumbilical herniadegenerative changes seen throughout the bones. No suspicious lytic orblastic lesions.. IMPRESSION: Postoperative changes at the right bladder and ureter. No recurrent ormetastatic disease in the abdomen/pelvis. No renal/ureteral mass or calculus. No hydronephrosis. -------- FINAL REPORT -------- Dictated By: RONNIE DAVISON Dictated Date: 07/28/2025 13:19 ET Assigned Physician: RONNIE DAVISON Reviewed and Electronically Signed By: RONNIE DAVISON Signed Date: 07/28/2025 13:24 ET Workstation ID: [id number] Transcribed By: Self Edit Transcribed Date: 07/28/2025 13:19 ET us Lainey Krueger MD IMG CT PROCEDURES Final Res ult * MG Mammo Digital Screening w Marshall bilat (05/07/2025 11:08 AM EDT) Anatomical Region Laterality Modality Breast Bilateral Mammography 05/07/2025 11:1 2 AM EDT Impressions 05/07/2025 11:19 AM EDT No mammographic evidence of malignancy. A negative mammogram in the presence of a clinically suspicious palpable abnormality does not preclude the possibility of malignancy or alter the indications for biopsy. PQRI CPT II 3342F Code 86859, 27941 PQRI 225 CPT II 7025F TISSUE DENSITY: There are scattered areas of fibroglandular density. (BI-RADS category B) IMPRESSION: Benign. BI-RADS CATEGORY: 2 - BENIGN RECOMMENDATION: Screening bilateral mammogram is recommended in 1 year. Mammo Location: [facility], [address] [place] [address] -------- FINAL REPORT -------- Dictated By: Juan Rankin Dictated Date: 05/07/2025 11:12 ET Assigned Physician: Juan Rankin Reviewed and Electronically Signed By: Juan Rankin Signed Date: 05/07/2025 11:19 ET Workstation ID: [id number] Transcribed By: Self Edit Transcribed Date: 05/07/2025 11:12 ET Narrative 05/07/2025 11:19 AM EDT CLINICAL: The patient is a 79 years Female presenting for routine screening mammography. COMPARISON: Most recently 10/10/2022 and most remotely 09/10/2017. TECHNIQUE: Full-field digital mammography of the breasts bilaterally consisting of tomosynthesis in MLO and CC projection is performed in the [employer] 2000-D unit. Computer aided detection utilizing the iCAD system was utilized. FINDINGS: The breasts are again seen to be composed of a combination of fatty and fibroglandular elements. A tissue marker is again seen in the upper-outer quadrant of the right breast. A few scattered benign punctate calcifications are again noted bilaterally, stable. There is no suspicious cluster of microcalcifications, mass, or area of architectural distortion. There is no skin thickening or nipple retraction. Procedure Note Juan Rankin MD - 05/07/2025 CLINICAL: The patient is a 79 years Female presenting for routinescreening mammography. COMPARISON: Most recently 10/10/2022 and most remotely 09/10/2017. TECHNIQUE: Full-field digital mammography of the breasts bilaterallyconsisting of tomosynthesis in MLO and CC projection is performed in the[employer]ograp[employer] 2000-D unit. Computer aided detection utilizing the iCADsystem was utilized. FINDINGS: The breasts are again seen to be composed of a combination offatty and fibroglandular elements. A tissue marker is again seen in theupper-outer quadrant of the right breast. A few scattered benign punctatecalcifications are again noted bilaterally, stable. There is nosuspicious cluster of microcalcifications, mass, or area of architecturaldistortion. There is no skin thickening or nipple retraction. IMPRESSION: No mammographic evidence of malignancy. A negative mammogram in the presence of a clinically suspicious palpableabnormality does not preclude the possibility of malignancy or alter theindications for biopsy. PQRI CPT II 3342F Code 31086, 55947 PQRI 225 CPT II 7025F TISSUE DENSITY: There are scattered areas of fibroglandular density.(BI-RADS category B) IMPRESSION: Benign. BI-RADS CATEGORY: 2 - BENIGN RECOMMENDATION: Screening bilateral mammogram is recommended in 1 year. Mammo Location: [facility], [address] [place] [id number] -------- FINAL REPORT -------- Dictated By: Juan Rankin Dictated Date: 05/07/2025 11:12 ET Assigned Physician: Juan Rankin Reviewed and Electronically Signed By: Juan Rankin Signed Date: 05/07/2025 11:19 ET Workstation ID: [id number] Transcribed By: Self Edit Transcribed Date: 05/07/2025 11:12 ET us Self Referral Sppl IMG BI PROCEDURES Final Resul t * Hemoglobin A1c (01/29/2025 6:09 AM EDT) Hemoglobin A1C 5.7 <6.5 % LAB CHEMISTRY METHOD 01/29/2025 11:31 AM EDT [facility] Mean Bld Glu Estim. 117 mg/dL LAB CHEMISTRY METHOD 01/29/2025 11:31 AM EDT [facility] Blood Venous blood specimen / Unknown Venipuncture / Unknown 01/29/2025 6:09 AM EDT 01/29/2025 8:57 AM EDT us Aashish Teran MD LAB BLOOD ORDERABLES Final Result [facility] [address] [place] [address], from Last 3 Months or Most Recently Relevant to Health Maintenance Insurance [employer] Care Teams Science Faculty Member Relationship Specialty Start Date End Date Lainey Krueger MD [address] [place] [phone] PCP - General Internal Medicine 04/29/25
--- OUTSIDE RECORDS SUMMARY | 2025-09-23 14:50 | XMS_ITS | Encounter Summary ---
Author Organization [facility] Address [address] [place] [address] Care Team Providers Care Trading Floor Operator Name Role Phone Lainey Krueger MD Primary Care Provider [phone] Encounter Details Date Type Department Care Team (Late Contact Info) Description 02/15/2025 Lab Requisition [facility] - Main Lab 299 [facility] [place] [phone] Aashish Teran MD [address] [place] [address] Type 2 diabetes mellitus without complications (CMS/HCC [...] Info) Description 09/24/2025 12:15 PM EST Appointment [facility] MRI [address] [place] [phone] 10/28/2025 11:30 AM EST Office Visit [facility] Hematology Oncology [address] [place] [phone] Alannah Barillas, DO [address] [place] [address] documented as of this encounter Visit Diagnoses Diagnosis Type 2 diabetes mellitus without complications ([facility] V24, [facility] V28) Cellulitis, unspecified documented in this encounter Care Teams Trading Floor Operator Relationship Specialty Start Date End Date Lainey Krueger MD [address] [place] [address] PCP - General Internal Medicine 04/29/25 documented as of this encounter
--- OUTSIDE RECORDS SUMMARY | 2025-09-23 14:50 | XMS_ITS | Encounter Summary ---
Author Organization [facility] Address [address] [place] [address] Care Team Providers Care Public Relations Analyst Name Role Phone Lainey Krueger MD Primary Care Provider [phone] Encounter Details Date Type Department Care Team Description 09/07/[address] [facility] Oncology Services [address] [place] [address] [facility] Social History Tobacco Use Types Packs/Day Years Used Date Smoking Tobacco: Former Cigarettes 2 Smokeless Tobacco: Never Alcohol Use Standard Drinks/Week Comments Yes 0 (1 standard drink = 0.6 oz pur e alcohol) On occasion Sex and Gender Information Value Date Recorded Sex Assigned at Female 08/09/2023 8:17 AM EDT Gender Identity Not on file Sexual Orientation Not on file Job Start Date Occupation Industry Not on file Not on file Not on file documented as of this encounter Plan of Treatment Not on file documented as of this encounter Visit Diagnoses Not on filedocumented in this encounter Care Teams Public Relations Analyst Relationship Specialty Start Date End Date Lainey Krueger MD [address] [place] [phone] PCP - General Family Medicine 01/06/22 Fco F[place], [facility] Consulting Physician Medical Oncology 04/26/23 documented as of this encounter
--- OUTSIDE RECORDS SUMMARY | 2025-09-23 14:51 | XMS_ITS | Encounter Summary ---
Author Organization [facility] Address [address] [place] [address] Care Team Providers Care Neurology Manager Name Role Phone Lainey Krueger MD Primary Care Provider [phone] Encounter Details Date Type Department Care Team (Late Contact Info) Description 06/17/2025 Lab Requisition [facility] - Main Lab 299 [facility] [place] [phone] Pavan Garibay MD [address] [phone] Urinary tract infection, site not specified Social History Tobacco Use Types Packs/Day Years [...] Info) Description 09/24/2025 12:15 PM EST Appointment [facility] MRI [address] [place] [phone] 10/28/2025 11:30 AM EST Office Visit [facility] Hematology Oncology [address] [place] [phone] NargisAlannah newman, DO [address] [place] [address] documented as of this encounter Procedures Procedure Name Priority Date/Time Associated Diagnosis Comments BACTERIAL IDENTIFICATION AND SUSCEPTIBILITY, AEROBIC Routine 06/16/2025 2:27 PM EDT Urinary tract infection, site not specified documented in this encounter Results * (ABNORMAL) Bacterial identification and susceptibility, aerobic (06/16/2025 2:27 PM EDT) Culture, Bacterial ID and Sensitivity Light Growth Escherichia coli(A) CLAUDIA 06/18/2025 10:16 AM EDT [facility] Comment: This is an edited result. Previous organism was Gram negative bacilli on 06/17/2025 at 1134 EDT. Other Urine specimen from urethra / Unknown Non-blood Collection / Unknown 06/16/2025 2:27 PM EDT 06/17/2025 10:08 AM EDT Narrative Organism Antibiotic Method Susceptibility Escherichia coli Amoxicillin/Clavulanate CLAUDIA 16 ug/ml: Intermediate Escherichia coli Ampicillin/Sulbactam CLAUDIA 8 ug/ml: Susceptible Escherichia coli Piperacillin/Tazobactam CLAUDIA <=4 [...] Levofloxacin CLAUDIA <=0.12 ug/ml: Susceptible Escherichia coli Trimethoprim/Sulfamethoxazole CLAUDIA >=320 ug/ml: Resistant us Pavan Garibay MD LAB MICROBIOLOGY - GENERAL ORDER BENIGNO Final Result [facility] [address] [place] [address], documented in this encounter Visit Diagnoses Diagnosis Urinary tract infection, site not specified documented in this encounter Care Teams Neurology Manager Relationship Specialty Start Date End Date Lainey Krueger MD [address] [place] [address] PCP - General Internal Medicine 04/29/25 documented as of this encounter
--- OUTSIDE RECORDS SUMMARY | 2025-09-23 14:51 | XMS_ITS | Encounter Summary ---
Author Organization [facility] Address [address] [place] [address] Care Team Providers Care Sack Cleaning Hand Name Role Phone Lainey Krueger MD Primary Care Provider [phone] Encounter Details Date Type Department Care Team (Late Contact Info) Description 02/08/[address] [facility] - Main Lab 299 [facility] [place] [phone] Aashish Teran MD [address] [place] [address] Type 2 diabetes mellitus without complications (CMS/HCC [...] Info) Description 09/24/2025 12:15 PM EST Appointment [facility] MRI [address] [place] [phone] 10/28/2025 11:30 AM EST Office Visit [facility] Hematology Oncology [address] [place] [phone] Nargis Alannahfabio Yuie, DO [address] [place] [address] documented as of this encounter Procedures Procedure Name Priority Date/Time Associated Diagnosis Comments COMPLETE BLOOD COUNT Routine 02/09/2025 7:04 AM EDT Type 2 diabetes mellitus without complications Cellulitis, unspecified BASIC METABOLIC PANEL Routine 02/09/2025 7:04 AM EDT Type 2 diabetes mellitus without complications Cellulitis, unspecified documented in this encounter Results * Basic metabolic panel (02/09/2025 7:04 AM EDT) Sodium 141 133 - 145 mmol/L LAB CHEMISTRY METHOD 02/09/2025 11:33 AM [facility] Potassium 4.5 3.5 - 5.5 mmol/L LAB CHEMISTRY METHOD 02/09/2025 11:33 AM [facility] Chloride 107 96 - 110 mmol/L LAB CHEMISTRY METHOD 02/09/2025 11:33 AM [facility] CO2 27 21 - 32 mmol/L LAB CHEMISTRY METHOD 02/09/2025 11:33 AM [facility] Anion Gap 7 3 - 11 LAB CHEMISTRY METHOD 02/09/2025 11:33 AM [facility] Glucose 97 70 - 100 mg/dL LAB CHEMISTRY METHOD 02/09/2025 11:33 AM [facility] BUN 20 5 - 25 mg/dL LAB CHEMISTRY METHOD 02/09/2025 11:33 AM [facility] Creatinine 0.73 0.50 - 1.10 mg/dL LAB CHEMISTRY METHOD 02/09/2025 11:33 AM [facility] eGFR 85 >=60 mL/min/1. 73m2 LAB CHEMISTRY METHOD 02/09/2025 11:33 AM EDT [facility] Comment:Calculation based on the Chronic Kidney Disease Epidemiology Collaboration (CKD-EPI) equation refit without adjustment for race. BUN/Creatinine Ratio 27.4 LAB CHEMISTRY METHOD 02/09/2025 11:33 AM T [facility] Calcium 9.2 8.5 - 10.5 mg/dL LAB CHEMISTRY METHOD 02/09/2025 11:33 AM T [facility] Blood Venous blood specimen / Unknown Venipuncture / Unknown 02/09/2025 7:04 AM EDT 02/09/2025 10:34 AM EDT us Aashish Teran MD LAB BLOOD ORDERABLES Final Result [facility] [address] [place] [address], * (ABNORMAL) Complete blood count (02/09/2025 7:04 AM EDT) WBC 7.7 4.8 - 10.8 K/mcL LAB HEMETOLOGY METHOD 02/09/2025 11:16 AM [facility] RBC 3.90 3.80 - 4.80 M/mcL LAB HEMETOLOGY METHOD 02/09/2025 11:16 AM [facility] Hemoglobin 11.1(L) 11.5 - 16.0 g/dL LAB HEMETOLOGY METHOD 02/09/2025 11:16 AM [facility] Hematocrit 35.5 35.0 - 47.0 % LAB HEMETOLOGY METHOD 02/09/2025 11:16 AM [facility] MCV 90.8 79.0 - 98.0 FL LAB HEMETOLOGY METHOD 02/09/2025 11:16 AM [facility] MCH 28.4 27.0 - 32.0 pcg LAB HEMETOLOGY METHOD 02/09/2025 11:16 AM EDT [facility] MCHC 31.3(L) 32.0 - 37.0 g/dL LAB HEMETOLOGY METHOD 02/09/2025 11:16 AM EDT [facility] RDW 13.2 11.0 - 15.0 % LAB HEMETOLOGY METHOD 02/09/2025 11:16 AM EDT [facility] Platelets 265 130 - 400 K/mcL LAB HEMETOLOGY METHOD 02/09/2025 11:16 AM EDT [facility] MPV 10.4 7.0 - 11.0 FL LAB HEMETOLOGY METHOD 02/09/2025 11:16 AM EDT [facility] NRBC 0.0 <1.0 % LAB HEMETOLOGY METHOD 02/09/2025 11:16 AM EDT [facility] NRBC Absolute 0.00 <0.10 K/mcL LAB HEMETOLOGY METHOD 02/09/2025 11:16 AM EDT [facility] Blood Venous blood specimen / Unknown Venipuncture / Unknown 02/09/2025 7:04 AM EDT 02/09/2025 10:34 AM EDT us Aashish Teran MD LAB BLOOD ORDERABLES Final Result [facility] [address] [place] [address], documented in this encounter Visit Diagnoses Diagnosis Type 2 diabetes mellitus without complications (CMS/HCC V24, CMS/HCC V28) Cellulitis, unspecified documented in this encounter Care Teams Sack Cleaning Hand Relationship Specialty Start Date End Date Lainey Krueger MD [address] [place] [address] PCP - General Internal Medicine 04/29/25 documented as of this encounter
--- OUTSIDE RECORDS SUMMARY | 2025-09-23 14:51 | XMS_ITS | Encounter Summary ---
Author Organization [facility] Address [address] [place] [address] Care Team Providers Care Basket Operator Name Role Phone Lainey Krueger MD Primary Care Provider [phone] Encounter Details Date Type Department Care Team (Late Contact Info) Description 10/24/2024 Lab Requisition [facility] - Main Lab 299 [facility] [place] [phone] Issa Maria MD [address] [phone] Dysuria Social History Tobacco Use Types Packs/Day Years [...] Info) Description 09/24/2025 12:15 PM EST Appointment [facility] MRI [address] [place] [phone] 10/28/2025 11:30 AM EST Office Visit [facility] Hematology Oncology [address] [place] [phone] Alannah Barillas Carmen, DO [address] [place] [address] documented as of this encounter Procedures Procedure Name Priority Date/Time Associated Diagnosis Comments BACTERIAL IDENTIFICATION AND SUSCEPTIBILITY, AEROBIC Routine 10/23/2024 12:00 AM EST Dysuria documented in this encounter Results * (ABNORMAL) Bacterial identification and susceptibility, aerobic (10/23/2024 12:00 AM EST) Culture, Bacterial ID and Sensitivity Escherichia coli(A) CLAUDIA 10/25/2024 9:40 AM EST [facility] Other Urinary bladder structure / Unknown 10/23/2024 10/24/2024 10:21 AM EST Narrative Organism Antibiotic Method Susceptibility Escherichia coli Amoxicillin/Clavulanate CLAUDIA 4 ug/ml: Susceptible Escherichia coli Ampicillin/Sulbactam CLAUDIA 4 ug/ml: Susceptible Escherichia coli Piperacillin/Tazobactam CLAUDIA <=4 ug/ml: Susceptible Escherichia coli Cefazolin (Urine) CLAUDIA 2 ug/ml: Susceptible Escherichia coli Cefoxitin CLAUDIA <=4 ug/ml: Susceptible Escherichia coli Ceftazidime CLAUDIA <=0.5 ug/ml: Susceptible Escherichia coli Ceftriaxone CLAUDIA <=0.25 ug/ml: Susceptible Escherichia coli Cefepime CLAUDIA <=0.12 ug/ml: Susceptible Escherichia coli Meropenem CLAUDIA <=0.25 ug/ml: Susceptible Escherichia coli Amikacin CLAUDIA 2 ug/ml: Susceptible Escherichia coli Gentamicin CLAUDIA <=1 ug/ml: Susceptible Escherichia coli Ciprofloxacin CLAUDIA <=0.06 ug/ml: Susceptible Escherichia coli Levofloxacin CLAUDIA <=0.12 ug/ml: Susceptible Escherichia coli Nitrofurantoin CLAUDIA <=16 ug/ml: Susceptible Escherichia coli Trimethoprim/Sulfamethoxazole CLAUDIA >=320 ug/ml: Resistant Issa Maria MD LAB MICROBIOLOGY - GENERAL ORDER BENIGNO Final Result [facility] [address] [place] [address], documented in this encounter Visit Diagnoses Diagnosis Dysuria documented in this encounter Care Teams Basket Operator Relationship Specialty Start Date End Date Lainey Krueger MD [address] [place] [address] PCP - General Internal Medicine 04/29/25 documented as of this encounter
--- OUTSIDE RECORDS SUMMARY | 2025-09-23 14:51 | XMS_ITS | Clinical Summary ---
Author Organization [address] Address [address] [place] [phone] Phone Care Team Providers Care Media Aid Name Role Phone Lainey Krueger MD Primary Care Provider [phone] Social History Tobacco Use Types Packs/Day Years Used Date Smoking Tobacco: Never Assessed PHQ-2 Answer Date Recorded PHQ-2 Total Score 0 05/07/2021 Comments Unknown Sex and Gender Information Value Date Recorded Sex Assigned at Not on file Legal Sex Female 4:54 PM EDT Gender Identity Not on file Sexual Orientation Not on file Last Filed Vital Signs Vital Sign Reading Time Taken Comments Blood Pressure 149/78 05/07/2021 5:45 PM EDT Pulse 79 05/07/2021 5:45 PM EDT Temperature 36.6 C (97.9 F) 05/07/2021 5:04 PM EDT Respiratory Rate 16 05/07/2021 5:45 PM EDT Oxygen Saturation 97% 05/07/2021 5:45 PM EDT Inhaled Oxygen Concentration - - Weight 126.8 kg (279 lb 8.7 oz) 05/07/2021 5:04 PM EDT Height - - Body Mass Index - - Plan of Treatment Health Maintenance Due Date Last Done Comments HIV screening 1960 Hepatitis C screening 1965 Tetanus adult (Td q 10,TDAP once) 1967 Lipid disorder screening 1987 Diabetes screening 1992 Pneumococcal Vaccine (50+ ye ars) (1 of 1 - PCV) 1997 Shingles vaccine (Shingrix) (1 of 2 - Shingrix (RZV) 2 Dose Standard Series) 1997 Osteoporosis screening (bone density) 2012 RSV Immunization (1 - 1-dose 75+ series) 2022 Influenza vaccine 06/19/2025 Covid-19 vaccine series (2024- season) 2025 Breast cancer screening Discontinued Cervical cancer screening Discontinued Colon cancer screening, Colonoscopy Discontinued Meningococcal B Vaccine Aged Out No l onger eligible based on patient's age to complete this topic Meningococcal Vaccine Aged Out No michi kat eligible based on patient's age to complete this topic Insurance COMMERCIAL GENERIC MEDICARE COMMERCIAL GENERIC MEDICARE COMMERCIAL GENERIC [place] [id number] MEDICARE Care Teams Media Aid Relationship Specialty Start Date End Date Lainey Krueger MD PCP - General Family Medicine 05/07/21
--- OUTSIDE RECORDS SUMMARY | 2025-09-23 14:51 | XMS_ITS | Encounter Summary ---
Author Organization [facility] Address [address] [place] [address] Care Team Providers Care Planer Offbearer Name Role Phone Lainey Krueger MD Primary Care Provider [phone] Encounter Details Date Type Department Care Team (Latest Contact Info) Description 01/23/2025 Lab Requisition [facility] - Main Lab [address] [facility] [place] [address] Julio Cavanaugh MD [address] [place] [phone] Malignant neoplasm of bladder, unspecified ([facility]/HCC V24, CMS/HCC V28); Chronic obstructive pulmonary disease, unspecified (CMS/HCC V24, CMS/HCC V28); Type 2 diabetes mellitus without complications (CMS/HCC V24, CMS/HCC V28) Social History Tobacco Use Types Packs/Day Years [...] Description 09/24/2025 12:15 PM EST Appointment [facility] MRI [address] [place] [phone] 10/28/2025 11:30 AM EST Office Visit [facility] Hematology Oncology [address] [place] [phone] Alannah Barillas, DO [address] [place] [address] documented as of this encounter Procedures Procedure Name Priority Date/Time Associated Diagnosis Comments COMPLETE BLOOD COUNT Routine 01/23/2025 4:58 AM EST Malignant neoplasm of bladder, unspecified (CMS/HCC) Chronic obstructive pulmonary disease, unspecified ([facility]/HCC) Type 2 diabetes mellitus without complications ([facility]/HCC) HEMOGLOBIN A1C Routine 01/23/2025 4:58 AM EST Malignant neoplasm of bladder, unspecified ([facility]/HCC) Chronic obstructive pulmonary disease, unspecified (CMS/HCC) Type 2 diabetes mellitus without complications ([facility]/HCC) BASIC METABOLIC PANEL Routine 01/23/2025 4:58 AM EST Malignant neoplasm of bladder, unspecified ([facility]/HCC) Chronic obstructive pulmonary disease, unspecified (CMS/HCC) Type 2 diabetes mellitus without complications (CMS/HCC) documented in this encounter Results * Hemoglobin A1c (01/23/2025 4:58 AM EST) Hemoglobin A1C 6.0 <6.5 % LAB CHEMISTRY METHOD 01/23/2025 1:[address] [facility] Mean Bld Glu Estim. 126 mg/dL LAB CHEMISTRY METHOD 01/23/2025 1:[address] [facility] Blood Venous blood specimen / Unknown Venipuncture / Unknown 01/23/2025 4:58 AM EST 01/23/2025 9:16 AM EST us uJlio Cavanaugh MD LAB BLOOD ORDERABLES Final Resu lt [facility] [address] [place] [address], * Basic metabolic panel (01/23/2025 4:58 AM EST) Sodium 137 133 - 145 mmol/L LAB CHEMISTRY METHOD 01/23/2025 10:11 AM [facility] Potassium 4.5 3.5 - 5.5 mmol/L LAB CHEMISTRY METHOD 01/23/2025 10:11 AM [facility] Chloride 103 96 - 110 mmol/L LAB CHEMISTRY METHOD 01/23/2025 10:11 AM [facility] CO2 29 21 - 32 mmol/L LAB CHEMISTRY METHOD 01/23/2025 10:11 AM [facility] Anion Gap 5 3 - 11 LAB CHEMISTRY METHOD 01/23/2025 10:11 AM [facility] Glucose 88 70 - 100 mg/dL LAB CHEMISTRY METHOD 01/23/2025 10:11 AM [facility] BUN 16 5 - 25 mg/dL LAB CHEMISTRY METHOD 01/23/2025 10:11 AM [facility] Creatinine 0.58 0.50 - 1.10 mg/dL LAB CHEMISTRY METHOD 01/23/2025 10:11 AM [facility] eGFR 93 >=60 mL/min/1. 73m2 LAB CHEMISTRY METHOD 01/23/2025 10:11 AM [facility] Comment:Calculation based on the Chronic Kidney Disease Epidemiology Collaboration (CKD-EPI) equation refit without adjustment for race. BUN/Creatinine Ratio 27.6 LAB CHEMISTRY METHOD 01/23/2025 10:11 AM [facility] Calcium 8.7 8.5 - 10.5 mg/dL LAB CHEMISTRY METHOD 01/23/2025 10:11 AM [facility] Blood Venous blood specimen / Unknown Venipuncture / Unknown 01/23/2025 4:58 AM EST 01/23/2025 9:16 AM EST us Rami A Ashkar MD LAB BLOOD ORDERABLES Final Resu lt [facility] [address] [place] [address], * (ABNORMAL) Complete blood count (01/23/2025 4:58 AM EST) WBC 6.9 4.8 - 10.8 K/mcL LAB HEMETOLOGY METHOD 01/23/2025 10:10 AM [facility] RBC 4.10 3.80 - 4.80 M/mcL LAB HEMETOLOGY METHOD 01/23/2025 10:10 AM [facility] Hemoglobin 11.6 11.5 - 16.0 g/dL LAB HEMETOLOGY METHOD 01/23/2025 10:10 AM [facility] Hematocrit 36.7 35.0 - 47.0 % LAB HEMETOLOGY METHOD 01/23/2025 10:[address] [facility] MCV 90.4 79.0 - 98.0 FL LAB HEMETOLOGY METHOD 01/23/2025 10:10 AM [facility] MCH 28.6 27.0 - 32.0 pcg LAB HEMETOLOGY METHOD 01/23/2025 10:10 AM [facility] MCHC 31.6(L) 32.0 - 37.0 g/dL LAB HEMETOLOGY METHOD 01/23/2025 10:[address] [facility] RDW 13.3 11.0 - 15.0 % LAB HEMETOLOGY METHOD 01/23/2025 10:10 AM [facility] Platelets 186 130 - 400 K/mcL LAB HEMETOLOGY METHOD 01/23/2025 10:10 AM [facility] MPV 11.0 7.0 - 11.0 FL LAB HEMETOLOGY METHOD 01/23/2025 10:10 AM [facility] NRBC 0.0 <1.0 % LAB HEMETOLOGY METHOD 01/23/2025 10:[address] [facility] NRBC Absolute 0.00 <0.10 K/mcL LAB HEMETOLOGY METHOD 01/23/2025 10:[address] [facility] Blood Venous blood specimen / Unknown Venipuncture / Unknown 01/23/2025 4:58 AM EST 01/23/2025 9:16 AM EST us Julio Cavanaugh MD LAB BLOOD ORDERABLES Final Resu lt [facility] [address] [place] [address], documented in this encounter Visit Diagnoses Diagnosis Malignant neoplasm of bladder, unspecified (CMS/HCC V24, CMS/HCC V28) Chronic obstructive pulmonary disease, unspecified (CMS/HCC V24, CMS/HCC V28) Type 2 diabetes mellitus without complications (CMS/HCC V24, CMS/HCC V28) documented in this encounter Care Teams Planer Offbearer Relationship Specialty Start Date End Date Lainey Krueger MD [address] [place] [address] PCP - General Internal Medicine 04/29/25 documented as of this encounter
--- OUTSIDE RECORDS SUMMARY | 2025-09-23 14:52 | XMS_ITS | Patient Health Record ---
Author Organization [facility] Address [address], [place] [address] Care Team Providers Care Lathe Sander Name Role Phone BERTHA HIGHTOWER Primary Care Provider MISHAWAKA, NURSING Unavailable [phone] MARGOT HESS Unavailable [phone] SWAPNA TRUJILLO Unavailable [phone] MANSOOR BAXTER Unavailable [phone] CHAI BUTCHER Unavailable [phone] ALLERGIES Allergen (clinical drug ingredient) Drug/Non Drug [...] muscle pain Drug Allergy Active Substance with 4-trydzyx-0-methyl glutaryl-coenzyme A reductase inhibitor mechanism of action (substance) Statins muscle pain Drug Allergy Active REASON FOR REFERRAL Reason asses and treat M17. 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) Referral Organization [facility] Referring Provider First Name BERTHA Referring Provider Last Name CAMPBELL Referring Provider Speciality Internal M edicine Referred Provider Specialty Physical The rapy General Notes Carlene RAMIREZ Referrals 12/29/2024 09:25:17 AM > referral request received from Estela at [facility], , dx: M17.11 Unilateral primary osteoarthritis, right knee, fax: [phone], referral approved and faxed to Estela at [phone] Referral Priority Routine Referral Appointment Date 12/30/2024 Reason 12/04/24 faxed tee woodall and through EMR H93.19 Referral Organization [facility] Referring Provider First Name BERTHA Referring Provider Last Name CAMPBELL Referring Provider Speciality Internal edicine Referred Provider HOLLIS ULLOA Referred Provider Specialty Otology, Lar yngology, Rhinology General Notes Kenyetta RAMIREZ P Admin 12:13:02 PM > pt requesting to see an ENT urgently>she has tinnitus in her left ear., This is what the pt stated;, Due to the constant humming and pulsating noise in my left ear, I have not been able to sleep well for the past four or five days. I believe that the fluid buildup behind my eardrum is causing the tinnitus. It must be drained. Thank you for your anticipated prompt attention., referral approved for 6 visits>faxed the hard referral to [phone] manually and through EMR requesting an URGENT visit , JAMESJames Zulema [facility] 12/10/2024 02:15:59 PM > CANT BE SEEN UNTIL JUN 2025. PT DOES NOT/CANT WAIT THAT LONG. See next new ENT referral created. Referral Priority Urgent Reason Appt 02/24/25 / Faxed 12/16/24 Tinnitus left ear - humming and pulsating noise in my left ear Referral Organization [facility] Referring Provider First Name BERTHA Referring Provider Last Name CAMPBELL Referring Provider Speciality Internal edicine Referred Provider JOSH GARIBAY (1 ) Referred Provider Specialty Ophthalmolog y, Otology, Laryngology, Rhinology General Notes James RAMIREZ [facility] 12/10 02:16:49 PM > [facility] ENT -Dr. Michelle Reed NPI # [id number], [address] [place] [address], , F# [phone] -NPT referrals, JAMESJames Poole [facility] 12/10/2024 02:38:47 PM > *Requesting appt for pt please. Thank you., Kenyetta RAMIREZ Admin 12/11/2024 08:35:57 AM > pt wrote in: , Unfortunately, [facility] did not have an appointment for me to see Dr. Hollis Ulloa until JULY 16, 2025. I cannot wait that long for treatment, as the buzzing noise is constant, and I cannot get a good night's sleep. I was able to locate a good Home Care Coordinator/Applications Sales Consultant at [facility], [address] [place] [address]. She is located at the [facility], 6th floor, [address] [place] [address]. . They can give me an appointment to be seen by Dr. Michelle Reed the end of February, or beginning of Mar, 2025. I would like a REFERRAL to see her. I know that [employer] will not approve payment for out of state appointments unless it is medically necessary. I will pay wisdom for the office visits. Kindly provide a referral for me to see the above doctor and I will cancel my July 16 appointment w/the [facility]. Thank you!, Lazara RAMIREZ 12/16/2024 09:43:24 AM > Pt called and was able to find a provider that takes her insurance....Dr. Chad Garibay, [address] [place] [address], [address], [place] [address]. Scheduled appt for February 24, 2025 at 10:00 a.m. -- Referral faxed to Dr. Garibay. Pt aware., Kenyetta RAMIREZ Admin 03/06/2025 02:40:08 PM > [facility] website says, PCP referral is not required within the members referral [facility] [place]. However, you can move forward by clicking next. If you do not wish to move forward, please click cancel., faxed to [phone]>encounter closed Referral Priority Routine Referral Appointment Date 02/24/2025 Referral Organization [facility] Referring Provider First Name BERTHA Referring Provider Last Name CAMPBELL Referring Provider Speciality Internal M edicine Referred Organization [facility] Referred Provider Specialty Physical The rapy General Notes Renuka RAMIREZ [facility] 02/19/2025 02:07:59 PM > Florence called from [facility] for a back dated insurance referral under the group , [address] [place] [address], phone [phone], fax [phone], reason-M17.11, appointment date was 02/16/25, visits-60, insurance confirmed, Kenyetta RAMIREZ P Admin 03/05/2025 12:03:37 PM > per incoming document from [facility] pt needs PT referral dated 02/11/25 to 11/18/25>dx code is M17.11>[place] [address]>use for 60visits, Renuka RAMIREZ Call [facility]tr 03/16/2025 01:16:06 PM > Florence called back from [facility] and they still haven't received the patients back dated referral request please fax to them [place].JAMES Lisa K Referrals 03/17/2025 03:30:22 PM > back dated referral approved and faxed to Mariusz at [phone] Referral Priority Routine Referral Appointment Date 02/11/2025 Reason Z85.51 Referral Organization [facility] Referring Provider First Name BERTHA Referring Provider Last Name CAMPBELL Referring Provider Speciality Internal edicine Referred Provider ISSA NGUYEN Referred Provider Specialty Urology General Notes Kenyetta RAMIREZ Admin 06/2025 08:25:34 AM > per incoming document from [facility] dated 03/24/25 pt has appt on 03/31 with JAMES Whalen Lisa K Referrals 03/30/2025 09:41:59 AM > per [facility] provider portal > PCP referral is not required within the members referral [facility] [place] faxed to [facility] at [phone] Referral Priority Routine Referral Appointment Date 03/31/2025 Reason Assess and treat Diagnosis 1 Multinodular goiter (E04.2) Referral Organization [facility] Referring Provider First Name BERTHA Referring Provider Last Name CAMPBELL Referring Provider Speciality Internal M edicine Referred Provider Specialty Endocrinolog y General Notes BERTHA HIGHTOWER S 06:49:55 PM > send to [place] [facility], James RAMIREZ [facility] 04/24/2025 11:05:35 AM > Requesting appt for pt please. Thank you. US reports being faxed separately., James RAMIREZ [facility] 05/01/2025 01:39:26 PM > Dr Carol Laguerre , phone [phone], fax [phone], reason-multi nodular goiter, appt date -they need the referral first Fwd> Kenyetta for ins referral, thanks., JAMESKenyetta P Admin 05/04/2025 09:49:41 AM > referral approved and faxed to [phone]>encounter closed Referral Priority Routine Referral Appointment Date 04/19/2025 Reason deltoid insertion. a sses and treat Diagnosis 1 Pain in right arm (M 79.601) Diagnosis 2 Left arm pain (M79.6 02) Referral Organization [facility] Referring Provider First Name BERTHA Referring Provider Last Name CAMPBELL Referring Provider Speciality Internal edicine Referred Organization [facility] Referred Provider Specialty Physical The marisela General Notes James RAMIREZ [facility] 05/11 03:51:56 PM > [facility]/[phone], requesting a referral for PT for Deltoid. , , Fax number is [phone] ATTN: Estela, visits: 20, Date: 05/12/2025, Insurance confirmed, Reason: Deltoid, James RAMIREZ [facility] 05/11/2025 03:52:00 PM > Fwd> Kenyetta for insurance referral, thank you., JAMESKenyetta P Admin 06/02/2025 03:21:09 PM > referral approved and faxed to [phone]>encounter closed Referral Priority Routine Referral Appointment Date 05/12/2025 Reason Tinnitis clinic Diagnosis 1 Tinnitus, bilateral (H93.13) Referral Organization [facility] Referring Provider First Name BERTHA Referring Provider Last Name CAMPBELL Referring Provider Speciality Internal edicine Referred Provider Specialty Audiologists General Notes James RAMIREZ [facility] 05/12 10:09:42 AM > [facility]-Dr. Carter Israel, Home Care Coordinator, [address] [place] [address], [place] [address] . . I have an initial appointment slated for September 28 @ 11:15 a.m. AND A 2ND APPOINTMENT ON OCTOBER 05 at 3:00 p.m. to be measured for Ear Plugs w/filters., F# [phone] Referral Priority Routine Referral Appointment Date 09/28/2025 Reason 05/15/25 Referral Organization [facility] Referring Provider First Name BERTHA Referring Provider Last Name CAMPBELL Referring Provider Speciality Internal edicine Referred Provider Specialty Nutrition General Notes James RAMIREZ [facility] 05/15 02:19:53 PM > [facility] Nutrition Counsellor, [address] [place] [address] Phone [phone] F# [phone], James RAMIREZ [facility] 05/15/2025 02:21:53 PM > OV notes enclosed; *requesting appt for pt please. Thank you. Referral Priority Routine Reason 2/asses and treat Diagnosis 1 Lumbar radiculopathy , right (M54.16) Referral Organization [facility] Referring Provider First Name BERTHA Referring Provider Last Name CAMPBELL Referring Provider Speciality Internal edicine Referred Provider Specialty Physical The rapy General Notes Kenyetta RAMIREZ Admin 11:29:03 AM > per incoming doc from [facility] pt has appt on 05/25/25>procedure code 78155>facility npi [phone]>requesting 10 visits, Maddy RAMIREZ [employer] 06/02/2025 01:49:23 PM > [facility] lm with the service. Says they need the referral but I think they need the order faxed. see encounter , Kenyetta RAMIREZ Admin 06/02/2025 03:12:14 PM > [facility] [phone]>encounter closed, refaxed to [phone] Referral Priority Routine Referral Appointment Date 05/25/2025 Referral Organization [facility] Referring Provider First Name BERTHA Referring Provider Last Name CAMPBELL Referring Provider Speciality Internal M edicine Referred Provider ISSA NGUYEN Referred Provider Specialty Urology General Notes JAMESKenyetta P Admin 01:12:09 PM > per incoming document pt had appt on 05/06/25>referral not required according to [facility] Website>faxed [phone] Referral Priority Routine Referral Appointment Date 05/06/2025 Referral Organization [facility] Referring Provider First Name BERTHA Referring Provider Last Name CAMPBELL Referring Provider Speciality Internal edicine Referred Provider ISSA NGUYEN Referred Provider Specialty Urology General Notes Kenyetta RAMIREZ P Admin 02/2025 10:19:29 AM > per incoming document from [facility] pt has appt on 06/16/[address] Issa Nguyen for Z85.51>no referral is required according to [facility] as this office is in their [place] >faxed to [phone]>encounter closed Referral Priority Routine Referral Appointment Date 06/16/2025 Reason Patient considering spinal shots if you think that it would be helpful. Diagnosis 1 Lumbar radiculopathy (M54.16) Referral Organization [facility] Referring Provider First Name BERTHA Referring Provider Last Name CAMPBELL Referring Provider Speciality Internal edicine Referred Provider Specialty Pain Managem ent General Notes BERTHA HIGHTOWER 05:32:45 PM > okay for referral and okay to send over testing from back and neck. Diagnosis cervical and lumbar radiculopathy neck and back pain, James RAMIREZ CHIP CRUSHER OPERATOR 07/03/2025 09:51:35 AM > [facility], [address] [place] [address] , , F# [phone], James RAMIREZ CHIP CRUSHER OPERATOR 07/08/2025 10:19:36 AM > OV notes, imaging reports enclosed; *requesting appt for pt please. Thank you., Kenyetta RAMIREZ P Admin 07/15/2025 12:57:03 PM > per incoming document pt needs referral for TBD appt (used todays date for start date) to see Dr Lehman for Lumbar Radiculopathy>referral approved and faxed to [facility] at [phone]>encounter closed Referral Priority Routine Referral Appointment Date 07/15/2025 Reason Bladder cancer Diagnosis 1 Urothelial cancer (C 68.9) Diagnosis 2 Malignant neoplasm o f urinary bladder, unspecified site (C67.9) Referral Organization [facility] Referring Provider First Name BERTHA Referring Provider Last Name CAMPBELL Referring Provider Speciality Internal edicine Referred Provider Specialty Oncology General Notes James RAMIREZ CHIP CRUSHER OPERATOR 08/06 08:36:36 AM > Dr. Alannah Barillas at [facility] [address] [place] [address], , F# [phone], James RAMIREZ CHIP CRUSHER OPERATOR 08/06/2025 08:37:59 AM > Notes attached; *Requesting appt for pt please. Thank you. Referral Priority Routine Reason 79 yr female with ch ronic constipation and last colonoscopy 2017 and was due 2022 Diagnosis 1 Chronic constipation (K59.09) [facility] Referring Provider First Name MANSOOR Referring Provider Last Name VEE Referring Provider Speciality Internal edicine Referred Provider ANNABELLA JUÁREZ Referred Provider Specialty Gastroentero logy Referral Priority Routine Reason 79 yr old female wit h chronic pain in both arms r/o cervical radiculitis Diagnosis 1 Pain in left arm (M7 9.602) Diagnosis 2 Pain in right arm (M 79.601) Referral Organization [facility] Referring Provider First Name MANSOOR Referring Provider Last Name VEE Referring Provider Speciality Internal edicine Referred Provider CORONA MENDEZ Referred Provider Specialty Neurology General Notes Jennifer RAMIREZ [place] 1 11:57:06 AM > FAXED referral and notes Referral Priority Routine Reason S05.02XA Referral Organization [facility] Referring Provider First Name BERTHA Referring Provider Last Name CAMPBELL Referring Provider Speciality Internal edicine Referred Provider Specialty Wardrobe Image Consultant General Notes Kenyetta RAMIREZ Admin 12:40:37 PM > per incoming document from [facility] pt had appt on [address] Dagoberto Aguilar [phone]>[id number]>S05.02XA>[phone] Referral Priority Routine Referral Appointment Date 09/14/2025 MEDICATIONS Medication SIG (Take, Route, Frequency, Duration) Notes Start Date End Date Status Acetaminophen 8 Hour 650 MG 2 tablets as needed Orally every 8 hrs Active metFORMIN HCl ER 500 MG TAKE 1 TABLET BY MOUTH EVERY DAY for 90 Active OneTouch Ultra - USE TO TEST 1-2 TIMES DAILY Active Stool Softener 100 MG 1 tablet as needed Orally Once a day for 30 day(s) Active Turmeric 500 MG as directed Orally 2200mg Active Vitamin D 50 MCG (2000 UT) 1 tablet Orally Once a day Active LORazepam 0.5 MG 1 tab and may repeat in 2 hrs if needed Orally for 1 day 09/10/2025 Active MiraLax 17 GM/SCOOP as directed Orally daily Active Medical Compression Stockings - as directed Knee high open toed 20mmHG Dx I89.0, I87.2, R60.0 04/30/2025 Active MetroCream 0.75 % 1 herrera applied topically twice daily to facial rosacea as needed Active Ibuprofen 600 MG 1 tablet with food or milk as needed Orally Three times a day Active Gabapentin 300 MG TAKE 2 CAPSULES BY MOUTH AT BEDTIME and 1 qam Active Escitalopram Oxalate 10 MG 1 tablet Orally Once a day for 30 day(s) Active Rosuvastatin Calcium 5 MG 1 tablet orally Once a day Active Vitamin B Complex - as directed Orally Active CoQ-10 100 MG as directed Orally Active Zolpidem Tartrate 5 MG 1 tablet at bedti me as needed Orally Once a day 07/16/2025 Active IMMUNIZATIONS Vaccine Route Administration Date Status Comme nts FLU- FLUVIRIN, PRE-FILLED SYRINGE 0.5 ml IM Intramuscular 08/21/2013 Administered Influenza Unknown 10/01/2012 Administered Influenza, Fluzone Quad.5 ml, IM Intramuscular 11/02/2016 Administered Moderna Bivalent Unknown 10/17/2022 Administered Moderna COVID-19 mRNA LNP-S PF IM Intramuscular 02/05/2021 Administered Moderna COVID-19 mRNA LNP-S PF Unknown 03/05/2021 Administered Moderna COVID-19 mRNA LNP-S PF Unknown 11/24/2021 Administered Pneumococcal (PPV23, adult) Unknown 05/19/2013 Administered [id number] IM Intramuscular 10/30/2024 Administered Tdap (Adacel)11-64,State Supplied Unknown 10/01/2012 Administered PREVNAR 13, STATE SUPPLIED IM Intramuscular 06/09/2015 Adm inistered SOCIAL HISTORY Tobacco Use: Social History Observation Description Date Details (start date - stop date) Never Smoker NA - NA Sex Assigned At : Social History Observation Description Sex Assigned At Female Smoking Question Answer Notes Are you a: never smoker Section Notes: quit age 24; h/o 1/2 ppd x 2 years. quit age 24; h/o 1/2 ppd x 2 years. quit age 24; h/o 1/2 ppd x 2 years. quit age 24; h/o 1/2 ppd x 2 years. quit age 24; h/o 1/2 ppd x 2 years. quit age 24; h/o 1/2 ppd x 2 years. quit age 24; h/o 1/2 ppd x 2 years. quit age 24; h/o 1/2 ppd x 2 years. quit age 24; h/o 1/2 ppd x 2 years. quit age 24; h/o 1/2 ppd x 2 years. quit age 24; h/o 1/2 ppd x 2 years. quit age 24; h/o 1/2 ppd x 2 years. quit age 24; h/o 1/2 ppd x 2 years. quit age 18; h/o 1/2 ppd x 2 years quit age 18; h/o 1/2 ppd x 2 years quit age 18; h/o 1/2 ppd x 2 years quit age 18; h/o 1/2 ppd x 2 years quit age 24; h/o 1/2 ppd x 2 years. quit age 18; h/o 1/2 ppd x 2 years quit age 24; h/o 1/2 ppd x 2 years. quit age 24; h/o 1/2 ppd x 2 years. quit age 24; h/o 1/2 ppd x 2 years. quit age 24; h/o 1/2 ppd x 2 years. quit age 24; h/o 1/2 ppd x 2 years. quit age 24; h/o 1/2 ppd x 2 years. quit age 24; h/o 1/2 ppd x 2 years. quit age 24; h/o 1/2 ppd x 2 years. quit age 24; h/o 1/2 ppd x 2 years. quit age 24; h/o 1/2 ppd x 2 years. quit age 22; h/o 1/2 ppd x 2 years. quit age 22; h/o 1/2 ppd x 2 years. quit age 22; h/o 1/2 ppd x 2 years. quit age 24; h/o 1/2 ppd x 2 years. quit age 22; h/o 1/2 ppd x 2 years. quit age 22; h/o 1/2 ppd x 2 years. quit age 24; h/o 1/2 ppd x 2 years. quit age 24; h/o 1/2 ppd x 2 years. quit age 24; h/o 1/2 ppd x 2 years. quit age 18; h/o 1/2 ppd x 2 years quit age 18; h/o 1/2 ppd x 2 years quit age 18; h/o 1/2 ppd x 2 years quit age 24; h/o 1/2 ppd x 2 years. quit age 18; h/o 1/2 ppd x 2 years quit age 24; h/o 1/2 ppd x 2 years. quit age 24; h/o 1/2 ppd x 2 years. quit age 24; h/o 1/2 ppd x 2 years. quit age 18; h/o 1/2 ppd x 2 years quit age 24; h/o 1/2 ppd x 2 years. quit age 24; h/o 1/2 ppd x 2 years. quit age 24; h/o 1/2 ppd x 2 years. PROBLEMS Problem Type ICD Code Onset Dates Problem Status W/U Status Risk SNOMED Code Notes Problem Vitamin D deficiency (E55.9) Active confirmed Vitamin D deficiency (46252253) Problem Constipation, unspecified (K59.00) Active confirmed Constip ation (82669899) Problem Pulmonary nodule (R91.1) Active confirmed 062101352 Problem Unspecified asthma, uncomplicated (J45.909) Active confirmed Uncomplicated asthma (disorder) (335989095) Problem Type 2 diabetes mellitus without complications (E11.9) Active confirmed Type I I diabetes mellitus without complication (957169294) Problem Thyroid nodule (E04.1) Active confirmed 375250245 Problem Chronic obstructive pulmonary disease, unspecified (J44.9) Active confirmed Chronic obstructive pulmonary disease (99901874) Problem Paresthesia of hand (R20.2) Active confirmed 365315296 Problem Irritable bowel syndrome (K58.9) Active confirmed 71421931 Problem Multinodular goiter (E04.2) Active confirmed 993124755 Problem Unspecified osteoarthritis, unspecified site (M19.90) Active confirmed Osteoarthritis (488426447) Problem Hyperlipidemia, unspecified (E78.5) Active confirmed Hyperlip idemia (86495625) Problem Type 2 diabetes mellitus with other diabetic kidney complication (E11.29) Active confirmed 41981414146084 Problem Type 2 diabetes mellitus with diabetic peripheral angiopathy without gangrene (E11.51) Active confirmed Type 2 diabetes mellitus with peripheral angiopathy (178396734) Problem Claustrophobia (F40.240) Active confirmed 29488545 Problem Obstructive sleep apnea (adult) (pediatric) (G47.33) Active confirmed Obstruc tive sleep apnea syndrome (disorder) (88775582) Problem Tinnitus, bilateral (H93.13) Active confirmed 2862048270858 Problem Venous insufficiency (chronic) (peripheral) (I87.2) Active confirmed Peripheral veno us insufficiency (20481712) Problem Non-pressure chronic ulcer of unspecified part of right lower leg with unspecified severity (L97.919) Active confirmed Chronic non-pressure ulcer of calf extending to fat level (08602575057765837 ) Problem Non-pressure chronic ulcer of unspecified part of left lower leg limited to breakdown of skin (L97.921) Active confirmed Chronic ul cer of skin of lower leg (disorder) (14513106397795250 ) Problem Adverse effect of antihyperlipidemic and antiarteriosclerotic drugs, initial encounter (T46.6X5A) Active confirmed 635002000 Problem Encounter for fittin g and adjustment of urinary device (Z46.6) Active confirmed Problem Personal history of malignant neoplasm of bladder (Z85.51) Active confirmed Personal hi story of primary malignant neoplasm of urinary bladder (226873483) Problem Presence of urogenit al implants (Z96.0) Active confirmed Urogenital implant (514791487) Problem History of colonic polyps (Z86.010) Active confirmed 486990100 Problem Anxiety (F41.9) Active confirmed 013744 02 Problem 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) Active confirmed Diabetic peripheral neuropathy associated with type 2 diabetes mellitus (4343795145305) Problem COPD with exacerbati on (J44.1) Active confirmed 708859586 Problem BMI 40.0-44.9, adult (Z68.41) Active confirmed 703952149 Problem Malignant neoplasm o f urinary bladder, unspecified site (C67.9) Active confirmed 135131563 Problem 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) Active confirmed Osteoarthritis of hip (078241554) Problem Right sided sciatica (M54.31) Active confirmed 853696829836114 Problem 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) Active confirmed 3358811 Problem Subacromial bursitis , left (M75.52) Active confirmed 65734620 Problem Lumbar radiculopathy , right (M54.16) Active confirmed 813261592 Problem Hypercholesterolemia (E78.00) Active confirmed 34116260 Problem Thyromegaly (E01.0) Active confirmed 37 87412 Problem Mild intermittent reactive airway disease with acute exacerbation (J45.21) Active confirmed 633730522 Problem Myalgia, unspecified site (M79.10) Active confirmed 35722202007715575 Problem Urothelial cancer (C68.9) Active confirmed 976289536 Problem Malignant neoplasm o f ureter, 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) Active confirmed 180508609 VITAL SIGNS Blood pressure diastolic 72 mm Hg 09/10/2025 Height 67 in 09/10/2025 Blood pressure systolic 128 mm Hg 09/10/2025 Weight 192.8 lbs 09/10/2025 BMI 30.19 kg/m2 09/10/2025 Encounters Encounter Location Date Provider Diagnosis [address] [address] 09/25/[address] [address] 09/25/2024 [facility] [address] [address] [address] 09/29/[address] [address] 09/29/2024 BERTHA HIGHTOWER [address] [address] 09/29/2024 BERTHA HIGHTOWER Cellulitis of right lower extremity L03.[address] [address] 10/03/2024 [facility] [address] [place] [address] 10/29/2024 [facility] Medicare annual well ness visit, subsequent Z00.00 [facility] [address] [place] [address] 10/29/2024 [facility] Annual physical exam Z00.00 ; Type 2 diabetes mellitus with diabetic neuropathy E11.40 ; Hypercholesterolemia E78.00 ; Malignant neoplasm of urinary bladder, unspecified site C67.9 ; Type 2 diabetes mellitus with other diabetic kidney complication E11.29 ; Type 2 diabetes mellitus with diabetic peripheral angiopathy without gangrene E11.51 and Mild eczema L30.9 [facility] [address] [place] [address] 10/30/2024 NURSING MISHAWAKA Encounter for immuni zation Z23 [facility] [address] [place] [address] 10/31/2024 [facility] [address] [place] [address] 11/03/2024 [facility] [address] [place] [address] 11/07/2024 [facility] [address] [place] [address] 11/10/2024 [facility] Acute bilateral low back pain without sciatica M54.50 [facility] [address] [place] [address] 12/03/2024 [facility] [address] [place] [address] 12/04/2024 [facility] [address] [place] [address] 12/04/2024 [facility] [address] [place] [address] 12/07/2024 [facility] [address] [place] [address] 12/10/2024 [facility] [address] [place] [address]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
--- OUTSIDE RECORDS SUMMARY | 2025-09-23 14:52 | XMS_ITS | Encounter Summary ---
Author Organization [facility] Address [address] [place] [address] Care Team Providers Care Bead Inspector Name Role Phone Lainey Krueger MD Primary Care Provider [phone] Encounter Details Date Type Department Care Team (Late st Contact Info) Description 01/29/[address] [facility] - Main Lab [address] [place] [address] Aashish Teran MD [address] [place] [address] Type 2 diabetes mellitus without complications (CMS/HCC V24, CMS/HCC V28); Cellulitis, unspecified; Presence of right artificial knee joint Social History Tobacco Use Types Packs/Day Years [...] Info) Description 09/24/2025 12:15 PM EST Appointment [facility] MRI [address] [place] [id number] 10/28/2025 11:30 AM EST Office Visit [facility] Hematology Oncology [address] [place] [id number] Alannah Barillas, DO [address] [place] [address] documented as of this encounter Procedures Procedure Name Priority Date/Time Associated Diagnosis Comments COMPLETE BLOOD COUNT Routine 01/29/2025 6:09 AM EDT Type 2 diabetes mellitus without complications (CMS/HCC) Cellulitis, unspecified Presence of right artificial knee joint HEMOGLOBIN A1C Routine 01/29/2025 6:09 AM EDT Type 2 diabetes mellitus without complications ([facility]/HCC) Cellulitis, unspecified Presence of right artificial knee joint COMPREHENSIVE METABOLIC PANEL Routine 01/29/2025 6:09 AM EDT Type 2 diabetes mellitus without complications ([facility]/HCC) Cellulitis, unspecified Presence of right artificial knee joint documented in this encounter Results * Hemoglobin A1c (01/29/2025 6:09 AM EDT) Hemoglobin A1C 5.7 <6.5 % LAB CHEMISTRY METHOD 01/29/2025 11:31 AM EDT [facility] Mean Bld Glu Estim. 117 mg/dL LAB CHEMISTRY METHOD 01/29/2025 11:31 AM EDT [facility] Blood Venous blood specimen / Unknown Venipuncture / Unknown 01/29/2025 6:09 AM EDT 01/29/2025 8:57 AM EDT us Aashish Teran MD LAB BLOOD ORDERABLES Final Result [facility] [address] [place] [address], * (ABNORMAL) Comprehensive metabolic panel (01/29/2025 6:09 AM EDT) Sodium 140 133 - 145 mmol/L LAB CHEMISTRY METHOD 01/29/2025 9:[address] [facility] Potassium 4.5 3.5 - 5.5 mmol/L LAB CHEMISTRY METHOD 01/29/2025 9:[address] [facility] Chloride 105 96 - 110 mmol/L LAB CHEMISTRY METHOD 01/29/2025 9:[address] [facility] CO2 29 21 - 32 mmol/L LAB CHEMISTRY METHOD 01/29/2025 9:[address] [facility] Anion Gap 6 3 - 11 LAB CHEMISTRY METHOD 01/29/2025 9:[address] [facility] Glucose 91 70 - 100 mg/dL LAB CHEMISTRY METHOD 01/29/2025 9:[address] [facility] BUN 13 5 - 25 mg/dL LAB CHEMISTRY METHOD 01/29/2025 9:[address] [facility] Creatinine 0.59 0.50 - 1.10 mg/dL LAB CHEMISTRY METHOD 01/29/2025 9:[address] [facility] eGFR 93 >=60 mL/min/1. 73m2 LAB CHEMISTRY METHOD 01/29/2025 9:[address] [facility] Comment:Calculation based on the Chronic Kidney Disease Epidemiology Collaboration (CKD-EPI) equation refit without adjustment for race. BUN/Creatinine Ratio 22.0 LAB CHEMISTRY METHOD 01/29/2025 9:[address] [facility] Calcium 8.8 8.5 - 10.5 mg/dL LAB CHEMISTRY METHOD 01/29/2025 9:[address] [facility] AST (SGOT) 15 10 - 42 unit/L LAB CHEMISTRY METHOD 01/29/2025 9:[address] [facility] ALT (SGPT) 16 10 - 60 unit/L LAB CHEMISTRY METHOD 01/29/2025 9:[address] [facility] Alkaline Phosphatase 73 42 - 121 unit/L LAB CHEMISTRY METHOD 01/29/2025 9:47 AM EDT [facility] Total Protein 5.9(L) 6.0 - 8.0 g/dL LAB CHEMISTRY METHOD 01/29/2025 9:[address] [facility] Albumin 3.0(L) 3.2 - 5.0 g/dL LAB CHEMISTRY METHOD 01/29/2025 9:47 AM EDT [facility] Total Bilirubin 0.8 0.0 - 1.4 mg/dL LAB CHEMISTRY METHOD 01/29/2025 9:47 AM EDT [facility] Blood Venous blood specimen / Unknown Venipuncture / Unknown 01/29/2025 6:09 AM EDT 01/29/2025 8:57 AM EDT Aashish Teran MD LAB BLOOD ORDERABLES Final Result [facility] [address] [place] [address], [place] [phone] * (ABNORMAL) Complete blood count (01/29/2025 6:09 AM EDT) WBC 7.6 4.8 - 10.8 K/mcL LAB HEMETOLOGY METHOD 01/29/2025 9:[address] [facility] RBC 4.00 3.80 - 4.80 M/mcL LAB HEMETOLOGY METHOD 01/29/2025 9:22 AM EDT [facility] Hemoglobin 11.5 11.5 - 16.0 g/dL LAB HEMETOLOGY METHOD 01/29/2025 9:22 AM EDT [facility] Hematocrit 36.5 35.0 - 47.0 % LAB HEMETOLOGY METHOD 01/29/2025 9:[address] [facility] MCV 90.3 79.0 - 98.0 FL LAB [facility]OLOG[facility] MCH 28.5 27.0 - 32.0 pcg LAB HEMETOLOGY METHOD 01/29/2025 9:[address] [facility] MCHC 31.5(L) 32.0 - 37.0 g/dL LAB HEMETOLOGY METHOD 01/29/2025 9:[address] [facility] RDW 13.2 11.0 - 15.0 % LAB HEMETOLOGY METHOD 01/29/2025 9:22 AM EDT [facility] Platelets 263 130 - 400 K/mcL LAB HEMETOLOGY METHOD 01/29/2025 9:[address] [facility] MPV 9.9 7.0 - 11.0 FL LAB HEMETOLOGY METHOD 01/29/2025 9:[address] [facility] NRBC 0.0 <1.0 % LAB HEMETOLOGY METHOD 01/29/2025 9:[address] [facility] NRBC Absolute 0.00 <0.10 K/mcL LAB HEMETOLOGY METHOD 01/29/2025 9:[address] [facility] Blood Venous blood specimen / Unknown Venipuncture / Unknown 01/29/2025 6:09 AM EDT 01/29/2025 8:57 AM EDT us Aashish Teran MD LAB BLOOD ORDERABLES Final Result [facility] [address] [place] [address], [place] [phone] documented in this encounter Visit Diagnoses Diagnosis Type 2 diabetes mellitus without complications (CMS/HCC V24, CMS/HCC V28) Cellulitis, unspecified Presence of right artificial knee joint documented in this encounter Care Teams Bead Inspector Relationship Specialty Start Date End Date Lainey Krueger MD [address] [place] [address] PCP - General Internal Medicine 04/29/25 documented as of this encounter
--- OUTSIDE RECORDS SUMMARY | 2025-09-23 14:52 | XMS_ITS | Encounter Summary ---
Author Organization [facility] Address [email or web address] [place] [address] Phone Care Team Providers Care Industrial Electrician Journeyman Name Role Phone Lainey Krueger MD Primary Care Provider [phone] Self-Referred, Patient Unavailable Unavailab le Encounter Details Date Type Department Care Team (Late st Contact Info) Description 05/03/2023 Procedure Pass [facility] [place], [place] [address] [facility] [address] [place] [address] Social History Tobacco Use Types Packs/Day Years Used Date Smoking Tobacco: Former Cigarettes Q uit: 1965 Smokeless Tobacco: Never Alcohol Use Standard Drinks/Week Comments Yes 1 (1 standard drink = 0.6 oz pur e alcohol) Child or Family Care Answer Date Record ed Do you have problems with on e of the following making it difficult for you to work, study, or receive health care? No 04/25/2023 Education Answer Date Recorded Are you interested in more education? Not on sara e 03/17/2023 Are you concerned about learning? Not on file 03/17/2023 No 03/17/2023 No 03/17/2023 Food Answer Date Recorded Within the past 6 months we worried whether our food would run out before we got money to buy more. Never True 04/25/2023 Within the past 6 months the food we bought just didn't last and we didn't have enough money to get more. Never True Residential Stability Answer Date Recor ded What is your housing situation today? I have reji amador 04/25/2023 How many times have you move d in the past 12 months? Zero (I did not move) 04/25/2023 Paying for Meds Answer Date Recorded Do you have trouble paying for medicines? No 04/25/2023 Paying Utility Bills Answer Date Record ed Do you have trouble paying your heating or elect ricity bill? No 04/25/2023 Transportation Answer Date Recorded Has the lack of transportati on kept you from medical appointments or from getting medications? No 04/25/2023 Digital Access Answer Date Recorded No 04/17/2023 No 04/17/2023 Reliable internet access at home? Not on file 04/17/2023 Device with a working camera? Not on file Comments Unknown Sex and Gender Information Value Date Recorded Sex Assigned at Female 12/28/2021 2:12 PM EST Legal Sex Female 2:08 PM EST Gender Identity Female 12/28/2021 2:12 PM EST Sexual Orientation Straight 12/28/2021 2: 12 PM EST documented as of this encounter Plan of Treatment Not on file documented as of this encounter Visit Diagnoses Not on filedocumented in this encounter Care Teams Industrial Electrician Journeyman Relationship Specialty Start Date End Date Lainey Krueger MD [address] [place] [address] PCP - General Family Medicine 04/02/23 Self-Referred, Patient 04/09/23 documented as of this encounter Additional Source Comments The information contained in this document represents components of the legal health record. It is not the complete legal health record.[facility]
--- OUTSIDE RECORDS SUMMARY | 2025-09-23 14:52 | XMS_ITS | Clinical Summary ---
Author Organization [facility] Address [address] [address] Phone Care Team Providers Care Drawer In Hand Name Role Phone Lainey Krueger MD Primary Care Provider [phone] Self-Referred, Patient Unavailable Unavailab le Allergies Active Allergy Reactions Criticality Noted Date Comments Azithromycin 01/20/2022 Cephalexin Hives,Shortness Of Breath High 01/20/2022 Simvastatin Joint Pain Low 04/25/2023 Qvuxmki-Njk-Gth Reductase Inhibitors 06/11/2020 Medications blood sugar diagnostic (ONETOUCH ULTRA TEST) Strp strips USE TO TEST 1-2 TIMES DAILY 11/20/2021 Active albuterol 90 mcg/actuation inhaler Inhale 2 puffs into the lungs. Active cholecalciferol , vitamin D3, 25 mcg (1,000 unit) chewable tablet Take by mouth. Active cycloSPORINE (RESTASIS) 0.05 % suspension 1 drop. 01/12/2022 Active diclofenac sodium (VOLTAREN) 75 MG EC tablet Take 1 tablet by mouth every morning. 03/20/2023 Active ADVAIR DISKUS 500-50 mcg/dose DISKUS TAKE 1 PUFF BY MOUTH EVERY 12 HOURS IN THE MORNING AND IN THE EVENING 03/07/2023 Active gabapentin (NEURONTIN) 300 MG capsule 300 mg. 12/21/2021 Active metFORMIN (GLUCOPHAGE) 500 MG tablet Take 500 mg by mouth. Active turmeric root extract 500 mg Cap Take by mouth. Active Active Problems No known active problems Family History Medical History Relation Comments Lung cancer Father Lung cancer Mother Relation Status Comments Father Mother Social History Tobacco Use Types Packs/Day Years Used Date Smoking Tobacco: Former Cigarettes Q uit: 1965 Smokeless Tobacco: Never Tobacco Cessation:Counseling Given: No Alcohol Use Standard Drinks/Week Comments Yes 1 [...] your housing situation today? I have reji sing 04/25/2023 How many times have you move [...] Orientation Straight 12/28/2021 2: 12 PM EST Last Filed Vital Signs Vital Sign Reading Time Taken Comments Blood Pressure 145/69 04/26/2023 11:12 AM EDT Pulse 85 04/26/2023 11:12 AM EDT Temperature 36.7 C (98 F) 04/26/2023 11:11 AM EDT Respiratory Rate 18 04/26/2023 11:1 1 AM EDT Oxygen Saturation 97% 04/26/2023 11: 12 AM EDT Inhaled Oxygen Concentration - - Weight 119.3 kg (263 lb 0.1 oz) 023 11:11 AM EDT Height 170.1 cm (5' 6.97 ) 04/26/2023 1 1:11 AM EDT Body Mass Index 41.23 04/26/2023 11:11 AM EDT Plan of Treatment Health Maintenance Due Date Last Done Comments Adult Td,Tdap Booster 1945 LIPID PANEL 1947 DEPRESSION SCREENING 1959 SMOKING Hx and SMOKELESS TOBACCO SCREENING 1960 HEPATITIS C SCREENING 1965 PNEUMOCOCCAL VACCINES (50+ years) (1 of 1 - PCV) 1997 ZOSTER VACCINES (1 of 2) 1997 OSTEOPOROSIS SCREENING INITIAL (ONE-TIME) 2012 RSV VACCINE (1 - 1-dose 75+ series) 2022 CREATININE LEVEL 05/24/2024 05/24/2023 INFLUENZA VACCINE (#1) 2025 COVID-19 VACCINE ( season) 2025 10/17/2022, 11/24/2021, 03/05/2021, Additional history exists HEPATITIS A VACCINES Aged Out No long er eligible based on patient's age to complete this topic HIB VACCINES Aged Out No longer eligi ble based on patient's age to complete this topic MENINGOCOCCAL VACCINES (ACWY) Aged Out No longer eligible based on patient's age to complete this topic MENINGOCOCCAL VACCINES (B) Aged Out N o longer eligible based on patient's age to complete this topic Medical Devices Not on file Procedures Procedure Name Priority Date/Time Associated Diagnosis Comments COMPREHENSIVE METABOLIC PANEL (CMP) Routine 05/24/2023 2:00 PM EDT Malignant neoplasm of urinary bladder, unspecified site from Last 3 Months or Most Recently Relevant to Health Maintenance Results * (ABNORMAL) Comprehensive metabolic panel (05/24/2023 2:00 PM EDT) SODIUM 141 136 - 145 mmol/L [facility]# [id number] POTASSIUM 4.0 3.4 - 5.1 mmol/L [facility]# [id number] CHLORIDE 105 98 - 107 mmol/L [facility]# [id number] CO2 25 22 - 31 mmol/L [facility]# [id number] BUN 21 6 - 23 mg/dL [facility]# [id number] CREATININE 0.72 0.50 - 1.20 mg/dL [facility]# [id number] GLUCOSE 142(H) 70 - 100 mg/dL [facility]# [id number] ALBUMIN 4.2 3.5 - 5.2 g/dL [facility]# [id number] TOTAL PROTEIN 6.8 6.4 - 8.3 g/dL [facility]# [id number] CALCIUM 9.3 8.8 - 10.7 mg/dL [facility]# [id number] ALKALINE PHOSPHATASE 100 35 - 104 U/L [facility]# [id number] TOTAL BILIRUBIN 0.3 0.2 - 1.2 mg/dL [facility]# [id number] AST 11 <33 U/L [facility]# [id number] ALT 10 <34 U/L [facility]# [id number] GLOBULIN 2.6 2.3 - 4.2 g/dL [facility]# [id number] EGFR 87 >59 mL/min/1.7 3m2 [facility]# [id number] Comment:Estimated glomerular filtration rate calculated using the CKD-EPI refit equation. ANION GAP 11 7 - 17 mmol/L [facility]# [id number] Blood 05/24/2023 2:00 PM EDT 05/24/2023 2:11 PM EDT [facility] LAB BLOOD BKR ORDERABLES Fin al Result [facility] LIC# [id number] [address] [place] [address], [facility] from Last 3 Months or Most Recently Relevant to Health Maintenance Insurance [place] [id number] MEDICARE PART A & B [place] [id number] MEDICARE PART A & [place] [address] [place] [address] MEDICARE REPLACEMENT MEDICARE PART A & B [place] MED[place]ARE REPLAC[place] MEDICARE PART A & B MEDICARE PART A & B MEDICARE PART A & B MEDICARE PART A & B [place] MEDICARE REPLAC[place] MEDICARE PART A & [place] MEDICARE REPL[place] MEDICARE PART A & B [place] MEDICARE REPLACEMENT MEDICARE PART A & B Advance Directives For more information, please contact: [phone] (9AM - 5PM [facility], Sunday-Sunday) Documents on File Type Date Recorded Patient Munitions Worker Expl anation Healthcare Proxy 04/30/2023 1:59 PM Care Teams Drawer In Hand Relationship Specialty Start Date End Date Lainey Krueger MD [address] [place] [address] PCP - General Family Medicine 04/02/23 Self-Referred, Patient 04/09/23 Additional Source Comments The information contained in this document represents components of the legal health record. It is not the complete legal health record.[facility]
--- OUTSIDE RECORDS SUMMARY | 2025-09-23 14:52 | XMS_ITS | Encounter Summary ---
Author Organization [facility] Address [address] [place] [address] Phone Care Team Providers Care Digital Marketing Executive Name Role Phone Lainey Krueger MD Primary Care Provider [phone] Self-Referred, Patient Unavailable Unavailab le Encounter Details Date Type Department Care Team (Late st Contact Info) Description 04/26/2023 Procedure Pass [facility] [place], [place] [address] [facility] [address] [place] [address] Social History Tobacco Use Types Packs/Day Years [...] on filedocumented in this encounter Care Teams Digital Marketing Executive Relationship Specialty Start Date End Date Lainey Krueger MD [address] [place] [address] PCP - General Family Medicine 04/02/23 Self-Referred, Patient 04/09/23 documented as of this encounter Additional Source Comments The information contained in this document represents components of the legal health record. It is not the complete legal health record.[facility]
--- OUTSIDE RECORDS SUMMARY | 2025-09-23 14:52 | XMS_ITS | Encounter Summary ---
Author Organization [facility] Address [address] [place] [address] Care Team Providers Care Yard Specialist Name Role Phone Lainey Krueger MD Primary Care Provider [phone] Encounter Details Date Type Department Care Team (Late Contact Info) Description 01/31/2025 Lab Requisition [facility] - Main Lab [address] [facility] [place] [phone] Aashish Teran MD [address] [place] [address] Type 2 diabetes mellitus without complications (CMS/HCC [...] Description 09/24/2025 12:15 PM EST Appointment [facility] MRI [address] [place] [id number] 10/28/2025 11:30 AM EST Office Visit [facility] Hematology Oncology [address] [place] [phone] Alannah Barillasie, DO [address] [place] [address] documented as of this encounter Procedures Procedure Name Priority Date/Time Associated Diagnosis Comments CBC WITH AUTO DIFFERENTIAL Routine 02/02/2025 7:39 AM EDT Type 2 diabetes mellitus without complications ([facility]/HCC) Cellulitis, unspecified CBC AND DIFFERENTIAL Routine 02/02/2025 7:39 AM EDT Type 2 diabetes mellitus without complications ([facility]/HCC) Cellulitis, unspecified BASIC METABOLIC PANEL Routine 02/02/2025 7:39 AM EDT Type 2 diabetes mellitus without complications ([facility]/HCC) Cellulitis, unspecified documented in this encounter Results * (ABNORMAL) CBC auto differential (02/02/2025 7:39 AM EDT) WBC 8.6 4.8 - 10.8 K/mcL LAB HEMETOLOGY METHOD 02/02/2025 1:36 PM EDT [facility] RBC 4.30 3.80 - 4.80 M/mcL LAB HEMETOLOGY METHOD 02/02/2025 1:36 PM EDT [facility] Hemoglobin 12.0 11.5 - 16.0 g/dL LAB HEMETOLOGY METHOD 02/02/2025 1:36 PM EDT [facility] Hematocrit 38.4 35.0 - 47.0 % LAB HEMETOLOGY METHOD 02/02/2025 1:36 PM EDT [facility] MCV 89.9 79.0 - 98.0 FL LAB HEMETOLOGY METHOD 02/02/2025 1:36 PM EDT [facility] MCH 28.1 27.0 - 32.0 pcg LAB HEMETOLOGY METHOD 02/02/2025 1:36 PM EDT [facility] MCHC 31.3(L) 32.0 - 37.0 g/dL LAB HEMETOLOGY METHOD 02/02/2025 1:36 PM EDT [facility] RDW 13.2 11.0 - 15.0 % LAB [facility] 308 130 - 400 K/mcL [facility] MPV 10.0 7.0 - 11.0 FL LAB HEMETOLOGY METHOD [facility] NRBC 0.0 <1.0 % LAB HEMETOLOGY METHOD 02/02/2025 1:36 PM [facility] NRBC Absolute 0.00 <0.10 K/mcL LAB HEMETOLOGY METHOD 02/02/2025 1:36 PM EDT [facility] Neutrophils Relative 73.4 % LAB HEMETOLOGY METHOD 02/02/2025 1:36 PM [facility] Lymphocytes Relative 11.8 % LAB HEMETOLOGY METHOD 02/02/2025 1:36 PM [facility] Monocytes Relative 6.7 % LAB HEMETOLOGY METHOD 02/02/2025 1:36 PM [facility] Eosinophils Relative 6.6 % LAB HEMETOLOGY METHOD 02/02/2025 1:36 PM [facility] Basophils Relative 0.7 % LAB HEMETOLOGY METHOD 02/02/2025 1:36 PM EDT [facility] Immature Granulocytes Relative 0.8 % LAB HEMETOLOGY METHOD [facility] Neutrophils Absolute 6.34 1.50 - 7.00 K/mcL LAB HEMETOLOGY METHOD 02/02/2025 1:36 PM EDT [facility] Lymphocytes Absolute 1.02 1.00 - 5.00 K/mcL LAB HEMETOLOGY METHOD 02/02/2025 1:36 PM EDT [facility] Monocytes Absolute 0.58 0.20 - 1.00 K/mcL LAB HEMETOLOGY METHOD 02/02/2025 1:36 PM EDT [facility] Eosinophils Absolute 0.57(H) 0.00 - 0.50 K/mcL LAB HEMETOLOGY METHOD 02/02/2025 1:36 PM EDT [facility] Basophils Absolute 0.06 0.00 - 0.20 K/mcL LAB HEMETOLOGY METHOD 02/02/2025 1:36 PM EDT [facility] Immature Granulocytes Absolute 0.07(H) 0.00 - 0.03 K/[facility] LAB HEMETOLOGY METHOD 02/02/2025 1:36 PM EDT [facility] Blood Venous blood specimen / Unknown Venipuncture / Unknown 02/02/2025 7:39 AM EDT 02/02/2025 11:23 AM EDT Aashish Teran MD LAB BLOOD ORDERABLES Final Result [facility] [address] [place] [address], * Basic metabolic panel (02/02/2025 7:39 AM EDT) Sodium 141 133 - 145 mmol/L LAB CHEMISTRY METHOD 02/02/2025 3:07 PM EDT [facility] Potassium 4.4 3.5 - 5.5 mmol/L LAB CHEMISTRY METHOD 02/02/2025 3:07 PM EDT [facility] Chloride 105 96 - 110 mmol/L LAB CHEMISTRY METHOD 02/02/2025 3:07 PM EDT [facility] CO2 27 21 - 32 mmol/L LAB CHEMISTRY METHOD 02/02/2025 3:07 PM EDT [facility] Anion Gap 9 3 - 11 LAB CHEMISTRY METHOD 02/02/2025 3:07 PM T [facility] Glucose 81 70 - 100 mg/dL LAB CHEMISTRY METHOD 02/02/2025 3:07 PM [facility] BUN 18 5 - 25 mg/dL LAB CHEMISTRY METHOD 02/02/2025 3:07 PM T [facility] Creatinine 0.66 0.50 - 1.10 mg/dL LAB CHEMISTRY METHOD 02/02/2025 3:07 PM [facility] eGFR 90 >=60 mL/min/1. 73m2 LAB CHEMISTRY METHOD 02/02/2025 3:07 PM [facility] Comment:Calculation based on the Chronic Kidney Disease Epidemiology Collaboration (CKD-EPI) equation refit without adjustment for race. BUN/Creatinine Ratio 27.3 LAB CHEMISTRY METHOD 02/02/2025 3:07 PM [facility] Calcium 9.2 8.5 - 10.5 mg/dL LAB CHEMISTRY METHOD 02/02/2025 3:07 PM [facility] Blood Venous blood specimen / Unknown Venipuncture / Unknown 02/02/2025 7:39 AM EDT 02/02/2025 11:32 AM EDT us Aashish Teran MD LAB BLOOD ORDERABLES Final Result [facility] [address] [place] [address], [place] [phone] documented in this encounter Visit Diagnoses Diagnosis Type 2 diabetes mellitus without complications (CMS/HCC V24, CMS/HCC V28) Cellulitis, unspecified documented in this encounter Care Teams Yard Specialist Relationship Specialty Start Date End Date Lainey Krueger MD [address] [place] [address] PCP - General Internal Medicine 04/29/25 documented as of this encounter
--- OUTSIDE RECORDS SUMMARY | 2025-09-23 14:52 | XMS_ITS | Clinical Summary ---
Author Organization [facility] Address [address] [place] [address] Care Team Providers Care Glass Loading Equipment Tender Name Role Phone Lainey Krueger MD Primary Care Provider [phone] Allergies Active Allergy Reactions Criticality Noted Date Comments Azithromycin 01/20/2022 Cephalexin Hives,Shortness Of Breath High 01/20/2022 Statins 08/14/2023 Medications Medication Sig Dispensed Refills Start Date End Date Status metFORMIN (GLUCOPHAGE) tablet 500 mg Take 1 tablet (500 mg total) by mouth. 0 Active Glucose Blood (MYTRNDTouch Ultra) STRP USE TO TEST 1-2 TIMES DAILY 0 11/20/2021 Active gabapentin (NEURONTIN) 300 MG capsule 1 capsule (300 mg total) every night at bedtime as needed. 0 12/21/2021 Active diclofenac (VOLTAREN) 75 MG EC tablet Take 1 tablet (75 mg total) by mouth daily as needed. 0 10/29/2021 Active Restasis 0.05 % ophthalmic emulsion Place 1 drop into both eyes 2 (two) times a day. 0 01/12/2022 Active rosuvastatin (CRESTOR) tablet 5 mg Take 1 tablet (5 mg total) by mouth daily. 0 Active B Complex Vitamins (VITAMIN B COMPLEX PO) Take by mouth. 0 Active vitamin D3 (cholecalciferol) 25 MCG (1000 UT) tablet Take 1 tablet (25 mcg total) by mouth daily. 0 Active Coenzyme Q10 (COQ10 PO) Take by mouth. Unsure of dosage. 0 Active ondansetron (ZOFRAN) 8 MG tablet Take 1 tablet (8 mg total) by mouth every 8 (eight) hours as needed for nausea. 30 tablet 0 08/28/2023 Active Active Problems No known active problems Family History Medical History Relation Name Comments Lung cancer Father Lung cancer Mother Relation Name Status Comments Father Mother Social History Tobacco Use Types Packs/Day Years Used Date Smoking Tobacco: Former Cigarettes 2 Smokeless Tobacco: Never Tobacco Cessation:Counseling Given: Not Answered Alcohol Use Standard Drinks/Week Comments Yes 0 (1 standard drink = 0.6 oz pur e alcohol) On occasion Sex and Gender Information Value Date Recorded Sex Assigned at Female 08/09/2023 8:17 AM EDT Gender Identity Not on file Sexual Orientation Not on file Job Start Date Occupation Industry Not on file Not on file Not on file Last Filed Vital Signs Vital Sign Reading Time Taken Comments Blood Pressure 103/53 02/22/2024 2:30 PM EDT RET OOK BP Pulse 77 02/22/2024 2:30 PM EDT Temperature 36.6 C (97.8 F) 02/22/2024 2:01 PM EDT Respiratory Rate - - Oxygen Saturation 99% 02/22/2024 2:01 PM EDT Inhaled Oxygen Concentration - - Weight 99.3 kg (219 lb) 02/22/2024 2:01 PM EDT Height 171.5 cm (5' 7.5 ) 02/22/2024 2:01 PM EDT Body Mass Index 33.79 02/22/2024 2:01 PM EDT Plan of Treatment Health Maintenance Due Date Last Done Comments Hepatitis C Screening 1945 COVID-19 Vaccine (#1) [birth year]26/1946 Depression Screening 1959 BMI Counseling 1965 Preventative Health Evaluation 1965 DTap / Tdap / Td (1 - Tdap) 1966 Shingrix-Zoster Vaccine (1 of 2) 1997 Fall Risk Assessment 2012 Osteoporosis Screening (DEXA Scan) 2012 Pneumococcal Vaccine (1 of 1 - PCV) 2012 RSV Adult > 60+ Yrs or Pregn ant (1 - 1-dose 75+ series) 2022 Influenza Vaccine (#1) 2025 Hepatitis B Vaccines Aged Out No long er eligible based on patient's age to complete this topic RSV Ped < 20 months Aged Out No longe r eligible based on patient's age to complete this topic Care Teams Glass Loading Equipment Tender Relationship Specialty Start Date End Date Lainey Krueger MD [address] [place] [phone] PCP - General Family Medicine 01/06/22 Fco Fulton, [facility] Consulting Physician Medical Oncology 04/26/23
== END 2025-09-23 12:45 | disposition home or self-care (01) ==
LOC: HO.HSM 12:11
PROVIDERS: PCP Family Medicine; Visit Provider Psychiatry & Neurology Neurology
DX: M47.22 Other spondylosis with radiculopathy, cervical region (principal); M51.16 Intervertebral disc disorders with radiculopathy, lumbar region; G62.9 Polyneuropathy, unspecified
CPT/HCPCS: 99204

== ENCOUNTER → 2025-09-23 12:11 | Outpatient (BNVA) | payer MEDICARE, SELFPAY | PROVIDERS: PCP Family Medicine; Visit Provider Psychiatry & Neurology Neurology | DX: H93.11 Tinnitus, right ear (principal); M47.22 Other spondylosis with radiculopathy, cervical region; M51.16 Intervertebral disc disorders with radiculopathy, lumbar region; G62.9 Polyneuropathy, unspecified | CPT/HCPCS: 99202 ==

== ENCOUNTER 2025-11-02 10:56 | Outpatient (REF) | payer MEDICARE, SELFPAY ==
--- NOTE | ~2025-11-02 | XR_ITS ---
EXAMINATION: XR SHOULDER, LEFT CLINICAL INFORMATION: M25.512 - Pain in left shoulder COMPARISON: None available. TECHNIQUE: Three views of the left shoulder. FINDINGS: No acute fracture, dislocation or suspicious bony lesion is identified Mild acromioclavicular arthritis. Glenohumeral joint space is maintained. Small calcification adjacent to the greater tuberosity, suggesting calcific tendinitis. No radiopaque foreign body. XR/XR shoulder LT min 2V IMPRESSION: No acute fracture. Mild acromioclavicular arthritis Small calcification adjacent to the greater tuberosity suggesting calcific tendinitis. Electronically signed by: Krishna Brody MD 11/02/2025 03:53 PM EST RP
--- NOTE | ~2025-11-02 | XR_ITS ---
EXAMINATION: XR LUMBOSACRAL SPINE CLINICAL INFORMATION: M51.16 - Intervertebral disc disorders with radiculopathy, lumbar region COMPARISON: None available. TECHNIQUE: 6 views of the lumbar spine, inclusive of flexion and extension views, were obtained. FINDINGS: Minimal L5-S1 anterolisthesis. Vertebral body heights are maintained. No evidence of acute fracture. No suspicious bony lesion. Multilevel disc degeneration, more prominent findings of moderate L2-3, L5-S1 disc degeneration. Multilevel facet degeneration. No gross subluxation on the flexion/extension views. Left proximal femur orthopedic hardware partially imaged. Right upper quadrant surgical clips. XR/XR lumbar spine 6V w bending IMPRESSION: Lumbar spondylosis No acute osseous findings Electronically signed by: Krishna Brody MD 11/02/2025 04:14 PM NADIA
== END 2025-11-02 10:57 | disposition home or self-care (01) ==
LOC: HO.XRAY 10:56
PROVIDERS: PCP Family Medicine; Visit Provider Nurse Practitioner Family
DX: G89.29 Other chronic pain (principal); M51.16 Intervertebral disc disorders with radiculopathy, lumbar region; M47.22 Other spondylosis with radiculopathy, cervical region; G62.9 Polyneuropathy, unspecified; M25.512 Pain in left shoulder; M48.02 Spinal stenosis, cervical region; M47.817 Spondylosis without myelopathy or radiculopathy, lumbosacral region; M50.10 Cervical disc disorder with radiculopathy, unspecified cervical region
CPT/HCPCS: 72114; 73030; 99202

== ENCOUNTER 2025-11-02 10:56 | Outpatient (AMB) | payer MEDICARE, SELFPAY ==
--- NOTE | 2025-11-02 11:00 | A.OFFVIS_ITS ---
Vital Signs 3 11/02/25 11:04 Height 5 ft 10 in Weight 220 lb BMI 31.6 BP 136/84 Blood Pressure Location Rt radial Position Sitting Pulse 68 Pulse Source Pulse Oximeter Pulse Oximetry (%) 100 Oxygen Delivery Method Room Air Intake Visit Reasons: lumbar radiculopathy Intake Note: Pain today 10/10 Quantitative Developer Required: No Accompanied by: Self / Same As Patient Allergies atorvastatin Allergy (Unknown, Verified 11/02/25 11:10) Muscle Pain azithromycin (From Zithromax Z-Herman) Allergy (Unknown, Verified 11/02/25 11:10) Hives cephalexin (From Keflex) Allergy (Unknown, Verified 11/02/25 11:10) Palpitations doxycycline Allergy (Unknown, Verified 11/02/25 11:10) Rash prednisone Allergy (Unknown, Verified 11/02/25 11:10) Hives simvastatin Allergy (Unknown, Verified 11/02/25 11:10) neck spasms Yeafrfo-UOP-GhP Reductase Inhibitor Allergy (Unknown, Verified 11/02/25 11:10) Muscle Pain HPI Comments Details: The patient is a 79-year-old female presenting for an evaluation of neck and back pain. She reports her low back pain started in March of this year after she tried to force a stuck window. The pain can reach a severity of 10/10 and is exacerbated by lifting, vacuuming, chores, walking on stairs, prolonged sitting or standing, bending down, and particularly by leaning backward. The pain sometimes radiates to her lower buttocks, predominantly on the right side. She also experiences numbness and tingling in her feet, mostly on the right. The patient also has significant neck pain with associated bilateral deltoid pain, which is worse on the left side. She reports numbness in her left hand fingers, which has prevented her from knitting, and she is left-handed. She also describes waking in the morning with tingling and numbness in her hand, which she relieves by shaking off or banging her hand on the mattress. Her pain and stiffness make it difficult to pull up her pants. She finds relief with diclofenac gel. Pertinent medical history includes bladder cancer diagnosed five years ago, for which she was treated with BCG and mitomycin. A tumor was removed from her left ureter last year, and she is scheduled for a blue light cystoscopy. She has osteopenia, a history of being 100 pounds overweight but has since lost the weight, and underwent a right knee replacement in January of this year. She has a noted allergy to prednisone causing hives in the past, but she reports tolerating it without issue for pneumonia about eight years ago and has used a steroid cream without problems. She has received physical therapy in the past, which was not very helpful. She takes supplements including vitamin B complex, alpha-lipoic acid, and turmeric, and uses a lidocaine roll-on for pain. Pain Description - Onset and Timing: Lower back pain started in March of this year after forcing a window. Neck pain with left radiculopathy. - Quality and Character: Described as a 10/10 sharp pain in the lower back when it hits. Neck radiates to left arm with numbness and tingling in her hand and fingers. - Location and Radiation: Lower back, sometimes radiating to the lower buttocks, mostly on the right side; neck pain and bilateral deltoid pain, worse on the left. - Exacerbating Factors: Pain is worsened by lifting, vacuuming, chores, using stairs, prolonged sitting or standing, bending down, and especially leaning backward. - Relieving Factors: Diclofenac gel provides some relief. - Interference with ADLs: Pain interferes with her ability to knit and makes it hard to pull her pants up; she sometimes uses a cane or walker. - Associated Symptoms: Numbness and tingling in the feet (mostly right) and in the fingers of her left hand. Pain Management - Affect: The patient expresses fear of becoming paralyzed due to her symptoms. - Analgesia: The patient's back pain can be a 10/10 at its worst; she uses diclofenac gel, a lidocaine roll-on, stretching exercises, vitamin B6/B12, alpha-lipoic acid, and turmeric for pain management. - Activities of Daily Living: Pain interferes with her ability to perform chores such as vacuuming, walk on stairs, knit, and dress herself. - Aberrant Drug-Related Behaviors: No aberrant drug-related behaviors were noted or discussed. Oswestry Low Back Pain Disability Score=22 [facility] Medical History (Updated 11/03/25 @ 19:47 by COMPA Thomas) Bladder cancer Arthropathy of right knee Vitamin D deficiency Acute depression Tear of meniscus of left knee Type 2 diabetes mellitus Lichen planus Rosacea GERD (gastroesophageal reflux disease) Hyperlipidemia Irritable bowel syndrome with constipation S/p left hip fracture Claustrophobia Chronic constipation Pain in right arm Pain in left arm Surgical History (Updated 11/02/25 @ 11:39 by Morelia Rod) H/O varicose vein ligation Hx of cholecystectomy H/O tubal ligation Review of Systems Narrative - Musculoskeletal: Reports chronic low back pain, radiating to the buttocks, and chronic neck pain with bilateral deltoid pain worse on the left; pain is exacerbated by extension of the back. - Neurological: Reports numbness and tingling in her feet (mostly right) and fingers (left hand); reports occasionally losing her balance on the right side and her leg giving out. - Genitourinary: Reports nocturia, waking every two hours to urinate; reports history of bladder cancer and painful cystoscopy. Const All systems reviewed & are unremarkable except as noted in HPI and below Physical Exam Vital Signs: Last Vital Signs Pulse 68 11/02/25 11:04 BP 136/84 11/02/25 11:04 Pulse Ox 100 11/02/25 11:04 Oxygen Delivery Method Room Air 11/02/25 11:04 BMI result Body Mass Index 31.6 General: Appears afebrile. Alert and oriented. Mood and affect appropriate. Follows and participates in conversation appropriately. Respiratory effort is unlabored. No cough. Able to transition from sit to stand unassisted. Mildly antalgic gait. Ambulates with bilaterally normal heel strike and toe off. Neck Other: Patient with decreased cervical ROM in all planes/especially with left lateral rotation. Reports increased pain with cervical extension and flexion. Spurling compression test equivocal. Elvey's tension test positive on the left, with radiation of pain from neck to wrist and fingers. Lhermitte's test was negative. DTR intact, +2 and symmetrical. Patient demonstrated 5/5 right and 4/5 left motor strength of bilateral upper extremities. 2 + radial pulses. Significant tightness throughout left upper trapezius as well as TTP throughout bilateral upper trapezius muscles. No paravertebral tenderness over facet joints bilaterally. Neck: Yes normal visual inspection, Yes no lymphadenopathy, Yes supple, No anterior neck swelling, Yes no JVD, No prominent supraclavicular fat pad and Yes prominent dorsocervical fat pad General: Yes no CVA tenderness Back/Spine/Pelvis Other: Limited lumbar ROM due to pain. Lumbar extension reproduces moderate pain with a pulling sensation, flexion and bending forward reproduces pulling and tightness in the lower back and left arm tingling and heaviness. Demonstrates 5/5 strength of quadriceps bilaterally as well as flexion/dorsiflexion of bilateral feet against resistance. 2+ pedal pulses bilaterally. Straight leg rise with dorsiflexion negative bilaterally. Diminished patellar and achilles reflexes bilaterally. Facet loading test positive bilaterally. Gualberto?s, Pelvic compression and Stinchfield tests are positive bilaterally, L>R. No groin pain with I/E hip rotations. Valsalva maneuver negative. Back: no CVA tenderness Cervical Spine: loss of normal cervical lordosis, cervical muscular tenderness, pain with cervical ROM, No Cervical spine tenderness and No step off deformity Thoracic/Lumbar Spine: thoracic and lumbar spine normal to inspection, No Thoracic/lumbar spine scar(s), Lasegue's sign negative, straight leg raise negative bilaterally, pain with thoraco-lumbar ROM, paraspinal muscle tenderness, thoraco-lumbar ROM limited, No thoracic spinal tenderness and lumbar spinal tenderness (L4-S1) Sacroiliac joints: bilaterally tender to palpation Extrem General: Yes capillary refill normal, Yes no clubbing, cyanosis or edema and Yes no calf tenderness Results Reviewed Results Reviewed: XR LUMBOSACRAL SPINE 11/02/25 CLINICAL INFORMATION: M51.16 - Intervertebral disc disorders with radiculopathy, lumbar region COMPARISON: None available. TECHNIQUE: 6 views of the lumbar spine, inclusive of flexion and extension views, were obtained. FINDINGS: Minimal L5-S1 anterolisthesis. Vertebral body heights are maintained. No evidence of acute fracture. No suspicious bony lesion. Multilevel disc degeneration, more prominent findings of moderate L2-3, L5-S1 disc degeneration. Multilevel facet degeneration. No gross subluxation on the flexion/extension views. Left proximal femur orthopedic hardware partially imaged. Right upper quadrant surgical clips. IMPRESSION: Lumbar spondylosis No acute osseous findings XR SHOULDER, LEFT 11/02/25 CLINICAL INFORMATION: M25.512 - Pain in left shoulder COMPARISON: None available. TECHNIQUE: Three views of the left shoulder. FINDINGS: No acute fracture, dislocation or suspicious bony lesion is identified Mild acromioclavicular arthritis. Glenohumeral joint space is maintained. Small calcification adjacent to the greater tuberosity, suggesting calcific tendinitis. No radiopaque foreign body. IMPRESSION: No acute fracture. Mild acromioclavicular arthritis Small calcification adjacent to the greater tuberosity suggesting calcific tendinitis. Assessment & Plan Assessment & Plan (1) Lumbar disc disease with radiculopathy: Code(s): M51.16 - Intervertebral disc disorders with radiculopathy, lumbar region Category: Medical (2) Lumbosacral spondylosis: Code(s): M47.817 - Spondylosis without myelopathy or radiculopathy, lumbosacral region Category: Medical (3) Cervical spondylosis with radiculopathy: Code(s): M47.22 - Other spondylosis with radiculopathy, cervical region Category: Medical (4) Peripheral neuropathy: Code(s): G62.9 - Polyneuropathy, unspecified Category: Medical (5) Degenerative disc disease, cervical: Code(s): M50.30 - Other cervical disc degeneration, unspecified cervical region Category: Medical (6) Chronic neck and back pain: Code(s): M54.2 - Cervicalgia; M54.9 - Dorsalgia, unspecified; G89.29 - Other chronic pain Category: Medical (7) Neuroforaminal stenosis of cervical spine: Code(s): M48.02 - Spinal stenosis, cervical region Category: Medical Plan The patient's neck symptoms are more significant than her back symptoms based on today's examination and imaging review. The plan is to start by addressing her cervical issues, as the MRI shows [id number] stenosis at C5-C6 and a disc protrusion at C7, which correlates with her left arm pain and numbness. A l eft parasagittal C6-C7 interlaminar epidural steroid injection with local and fluoroscopy for cervical radiculopathy. Due to a remote history of an allergic reaction to prednisone, the injection will be performed with local OR room where any potential reaction can be managed immediately. If the cervical injection does not provide significant improvement, the patient will be referred back to her Neurosurgeon, Dr. Black, for surgical consultation. For the lower back pain, which is attributed to arthritis and does not have significant radicular signs, the plan is to consider diagnostic medial branch blocks in the future. Depending on the outcome of the blocks, she could be a candidate for radiofrequency ablation or neuromodulation. Xrays of the left shoulder and flexion-extension views of the lumbar spine were obtained today to assess for any underlying shoulder pathology and lumbar spine instability, results are noted above. She manages osteopenia with dietary calcium and vitamin D. All questions and concerns have been answered and patient agreed with the treatment plan. Follow up after injection and sooner as needed. Patient was informed and verbally consented to the use of an ambient scribe for clinic note documentation during this visit. Orders: Orders 2 XR shoulder LT min 2V 11/02/25 M25.512 - Pain in left shoulder XR lumbar spine 6V w bending 11/02/25 M47.817 - Spondylosis without myelopathy or radiculopathy, lumbosacral region, M51.16 - Intervertebral disc disorders with radiculopathy, lumbar region Coding Level of Care Code New Pt Level 4 (80043) Diagnoses Lumbar disc disease with radiculopathy M51.16 Lumbosacral spondylosis M47.817 Cervical spondylosis with radiculopathy M47.22 Peripheral neuropathy G62.9 Degenerative disc disease, cervical M50.30 Chronic neck and back pain M54.2; M54.9; G89.29 Neuroforaminal stenosis of cervical spine M48.02
[2025-11-02 11:04] VITALS: BP 136/84; PULSE 68; O2SAT 100; BMI 31.6
== END 2025-11-02 11:43 | disposition home or self-care (01) ==
PROVIDERS: PCP Family Medicine; Visit Provider Nurse Practitioner Family
DX: M51.16 Intervertebral disc disorders with radiculopathy, lumbar region (principal); M47.817 Spondylosis without myelopathy or radiculopathy, lumbosacral region; M47.22 Other spondylosis with radiculopathy, cervical region; G62.9 Polyneuropathy, unspecified; M50.30 Other cervical disc degeneration, unspecified cervical region; M54.2 Cervicalgia; M54.9 Dorsalgia, unspecified; G89.29 Other chronic pain; M48.02 Spinal stenosis, cervical region
CPT/HCPCS: 99204

== ENCOUNTER → 2025-11-02 12:15 | Outpatient (BNV) | payer MEDICARE, SELFPAY | PROVIDERS: PCP Family Medicine; Visit Provider Radiology Diagnostic Ultrasound | DX: M51.16 Intervertebral disc disorders with radiculopathy, lumbar region (principal); M47.816 Spondylosis without myelopathy or radiculopathy, lumbar region; M19.012 Primary osteoarthritis, left shoulder; M25.812 Other specified joint disorders, left shoulder | CPT/HCPCS: 72114; 73030 ==